=== PATIENT | female | born 1950 | race Caucasian/White ===

== ENCOUNTER 2019-04-28 05:47 | Inpatient (IN) ==
[2019-04-28] MEDS ORDERED: SOLU-MEDROL IV ONE (06:14)
[2019-04-28] MEDS ORDERED: BENTYL IM ONE (06:14)
--- NOTE | 2019-04-28 06:27 | PROVIDER DOCUMENTATION ---
HPI-Abdominal Pain/GI Problem - General Chief Complaint: Abdominal Pain Stated Complaint: "CHRON'S ISSUES" & GENERAL PAIN Time Seen by Provider: 04/28/19 05:54 Source: patient Allergies/Adverse Reactions: Patient Allergies Allergy/AdvReac Type Severity Reaction Status Date / Time abatacept [From Orencia] Allergy SWELLING Verified 04/28/19 06:43 infliximab [From Remicade] Allergy Unknown Verified 04/28/19 06:43 clindamycin AdvReac NAUSEA/VOMI Verified 04/28/19 06:43 TING duloxetine [From Cymbalta] AdvReac Unknown Verified 04/28/19 06:43 guaifenesin AdvReac RASH Verified 04/28/19 06:43 levofloxacin [From Levaquin] AdvReac Unknown Verified 04/28/19 06:43 meloxicam [From Mobic] AdvReac VOMITING Verified 04/28/19 06:43 nitrofurantoin AdvReac NAUSEA/VOMI Verified 04/28/19 06:43 TING temazepam AdvReac NAUSEA/VOMI Verified 04/28/19 06:43 TING tramadol AdvReac NAUSEA Verified 04/28/19 06:43 zaleplon AdvReac NAUSEA/VOMI Verified 04/28/19 06:43 TING Home Medications: Home Medication List Medication Instructions Recorded Confirmed Last Taken Type Amoxicillin/Potassium Clav 1 ea PO BID 04/28/19 04/28/19 1 Day Ago History [Amox-Clav 875-125 mg Tablet] ~04/27/19 Calcium Carbonate/Vit D3 [Caltrate 1 ea PO DAILY 04/28/19 04/28/19 Unknown History 600 + D] Gabapentin 100 mg PO DAILY 04/28/19 04/28/19 1 Day Ago History ~04/27/19 Lactobacillus Acidophilus 1 ea PO DAILY 04/28/19 04/28/19 Unknown History [Acidophilus] Losartan [Cozaar] 50 mg PO DAILY 04/28/19 04/28/19 1 Day Ago History ~04/27/19 Pantoprazole [Protonix] 40 mg PO DAILY 04/28/19 04/28/19 1 Day Ago History ~04/27/19 Prednisone 10 mg PO DAILY 04/28/19 04/28/19 1 Day Ago History ~04/27/19 Sulfasalazine [Azulfidine] 500 mg PO BID 04/28/19 04/28/19 Unknown History Vit C/E/Zn/Coppr/Lutein/Zeaxan 1 ea PO DAILY 04/28/19 04/28/19 Unknown History [Preservision Areds 2 Softgel] - History of Present Illness-ABD Nature of Presenting Problems: 68 y/o WF c/o abdo pain similar to her previous crohns flair ups shes that in the past. Pt States that she has had multiple episodes diarrhea and some SOB today as well. Abdominal Pain Onset Location: reports: generalized abdomen Pain Radiation: reports: no radiation Quality of Pain: reports: aching, cramping Severity in ED: reports: mild Onset/Duration: reports: 2 days ago Timing: reports: still present Activities at Onset: reports: light activity Exposure to sick contacts?: No Modifying Factors: improves with: defecating, palpation Associated Symptoms: reports: diarrhea Last BM: this morning Dark Stools Present?: reports: none noticed Rectal Bleeding: reports: none # of Diarrhea Episodes: 8 Rectal Pain: reports: none # of Vomiting Episodes: 0 Emesis Description: reports: none Bruising or Bleeding Gums?: No Similar Symptoms Previously?: Yes Recently seen or treated by another doctor?: No Review of Systems - Adult - REVIEW OF SYSTEMS - ADULT Constitutional: reports: no symptoms reported, see HPI Eyes: reports: no symptoms reported, see HPI Ears, Nose, Mouth & Throat: reports: no symptoms reported, see HPI Cardiovascular: reports: no symptoms reported, see HPI Respiratory: reports: no symptoms reported, see HPI Gastrointestinal: reports: see HPI, abdominal pain, diarrhea Genitourinary: reports: no symptoms reported, see HPI Musculoskeletal: reports: no symptoms reported, see HPI Integumentary: reports: no symptoms reported, see HPI Neurological: reports: no symptoms reported, see HPI Psychiatric: reports: no symptoms reported, see HPI Endocrine: reports: no symptoms reported, see HPI Hematologic/Lymphatic: reports: no symptoms reported, see HPI Allergic/Immunologic: reports: no symptoms reported, see HPI All Other Systems: Reviewed and Negative Past History - Adult - PAST MEDICAL HISTORY-ADULT Review of Records: reports: Nursing Assessment Review, Medications Reviewed, Social history reviewed & non-contributory. Physical Exam-General - PHYSICAL EXAM-ADULT Initial Vital Signs Reviewed: Yes - CONSTITUTIONAL General Appearance: appears well, alert, no apparent distress - EYES Eyes: PERRL/EOMI - HEAD, EARS, NOSE, MOUTH & THROAT HENMT: normocephalic/atraumatic, moist mucous membranes, normal ENT inspection - NECK Neck: non-tender, full range of motion, supple, normal inspection - RESPIRATORY Respiratory: chest non-tender, lungs clear, normal breath sounds, no pleuratic chest pain, no respiratory distress, no accessory muscle use - CARDIOVASCULAR Cardiovascular: normal peripheral pulses, regular rate, rhythm, no edema, no gallop, no JVD, no murmur - GASTROINTESTINAL (ABDOMEN) Abdominal Exam: normal bowel sounds, soft, no organomegaly, no pulsatile mass, tenderness (generalized) - LYMPHATIC Lymphatic: no adenopathy - MUSCULOSKELETAL Back Exam: normal inspection, no CVA tenderness, no vertebral tenderness Extremity: normal range of motion, non-tender, normal gait, normal inspection, no pedal edema, no calf tenderness, normal capillary refill - SKIN Integumentary: normal color, normal turgor - NEUROLOGIC Neurologic: insurance coder II-XII nml as tested, grossly normal, no motor/sensory deficits - PSYCHIATRIC Psych/Mental Status: normal mood/affect, normal thought content, normal thought process, oriented x 3 Progress - PLAN OF CARE/RESULTS Progress/Plan/Lab Results: Vital Signs - 8 hr 04/28/19 05:49 Temperature 98.5 F Pulse Rate 85 Respiratory Rate 18 Blood Pressure 140/73 O2 Sat by Pulse Oximetry 98 Orders Category Date Time Status CHEST-1 VIEW [RAD] Stat Exams 04/28/19 06:13 Ordered AMYLASE [CHEM] Stat Lab 04/28/19 05:55 Uncollected CBC WITH ELECTRONIC DIFF [HEME] Stat Lab 04/28/19 05:54 Uncollected COMPREHENSIVE METABOLIC PANEL [CHEM] Stat Lab 04/28/19 05:55 Uncollected LIPASE [CHEM] Stat Lab 04/28/19 05:55 Uncollected TROPONIN T Stat Lab 04/28/19 06:13 Uncollected URINALYSIS W/POSS RFLX CULT [URINALYSIS] Stat Lab 04/28/19 05:55 Uncollected Dicyclomine [Bentyl] Med 04/28/19 06:14 Once 10 mg IM NOW ONE Methylprednisolone Sod Succ [Solu-Medrol] Med 04/28/19 06:14 Once 125 mg IV NOW ONE EKG [EKG] Stat Ther 04/28/19 06:13 Ordered Result Diagrams: 04/28/19 06:15 04/28/19 06:15 - CONSULTS/PCP/HOSPITALIST Notification #1 *Consult/PCP/Hospitalist*: Dr March Time Discussed: 08:49 Consult Disposition: Admit (spoke with Regina, accepted patient for Dr March) - CHANGE OF SHIFT REPORT (ED Provider) 1 Report Given and Care Transferred to:: Dr Escobar Time of Transfer: 07:00 Items Pending: Labs, XRAY Results Departure - Departure Date of Disposition Decision: 04/28/19 Time of Disposition Decision: 08:57 DIAGNOSIS: Electrolyte abnormality, Dehydration Disposition: ADMITTED INPATIENT 09 Certified Medical Emergency: Emergent Condition: Good Referrals and Follow-Ups: None,PCP [Primary Care Provider] - - Critical Care Note This patient required my direct & personal management of CC.: No Attestation - Physician/ ANGUS Attestation Patient care was provided by Advanced Practice Provider:: No The physician spent face to face time with patient:: Yes Advanced Practice Provider documentation review:: Supervising physician onsite and consulted in the evaluation and care of this patient. The physician did have a face to face encounter with the patient.
[2019-04-28] MEDS ORDERED: NS 1,000 ML IV ONE ×2 (06:30→10:51)
--- NOTE | 2019-04-28 06:31 | Diag Imaging Result Doc PS360 ---
EXAM: CHEST-1 VIEW HISTORY: sob TECHNIQUE: Single view COMPARISON: 05/01/2017 FINDINGS: The lungs are well expanded. The heart is not enlarged. The vessels are not distended. There are no infiltrates. Likely pleural thickening in the right base. Old rib fractures. IMPRESSION: Stable chest Electronically signed by Evan Parry 04/28/2019 6:29 AM
[2019-04-28 07:10] LABS: BASO# 0.02 X1000 (0.0-0.2); BASO% 0.2 % (0.0-0.8); EOS# 0.12 X1000 (0.0-0.7); EOS% 0.9 % (0.0-10.0); HEMOGLOBIN 8.8 g/dL (12.0-16.0); LYMPH# 0.88 X1000 (1.2-3.4); LYMPH% 6.7 % (20.5-51.1); MCH 30.1 PG (27-31); MCHC 33.8 g/dL (33-37); MONO# 0.86 X1000 (0.11-0.59); MONO% 6.5 % (1.7-9.3); MPV 10.4 FL (7.4-10.4); NEUT# 11.26 X1000 (1.4-6.5); NEUT% 85.7 % (42.2-75.2); PLT 345 X1000 (130-400); RBC 2.92 XMIL (4.2-5.4); RDW 14.7 % (11.5-14.5); WBC 13.14 X1000 (4.8-10.8)
--- NOTE | 2019-04-28 07:17 | Diag Imaging Result Doc PS360 ---
EXAM: ABDOMEN FLAT/UPRIGHT HISTORY: abdo pain TECHNIQUE: Two views COMPARISON: 08/18/2010 FINDINGS: No free air beneath the diaphragm. There are surgical clips in the right lower quadrant. Nonspecific bowel gas pattern. No organomegaly. There are several left abdominal calcifications which may be renal stones. There are also pelvic phleboliths. IMPRESSION: Left abdominal calcifications which may represent lower pole renal stones. Electronically signed by Evan Parry 04/28/2019 7:14 AM
[2019-04-28 07:46] LABS: ALB/GLOB RATIO 1.5; ALBUMIN 3.5 g/dL (3.5-5.0); CREATININE 5.1 mg/dL (0.5-0.9); POTASSIUM 2.9 mmol/L (3.5-5.1); TOTAL BILIRUBIN 0.36 mg/dL (0.20-1.00); TOTAL PROTEIN 5.9 g/dL (6.3-8.3)
[2019-04-28 07:50] LABS: CALCIUM 5.8 mg/dL (8.8-10.2)
[2019-04-28] MEDS ORDERED: KLOR-CON PO ONE (07:59)
[2019-04-28] MEDS ORDERED: CALCIUM CHLORIDE 1 GM in NS 100 ML IV ONE (07:59)
[2019-04-28 08:47] LABS: URINE SOURCE CLEAN CATCH
[2019-04-28 08:54] LABS: BILIRUBIN URINE NEGATIVE (NEGATIVE); BLOOD URINE SMALL (NEGATIVE); COLOR YELLOW; GLUCOSE URINE NEGATIVE (NEGATIVE); KETONE URINE NEGATIVE (NEGATIVE); LEUKOCYTES URINE NEGATIVE (NEGATIVE); NITRITE URINE NEGATIVE (NEGATIVE); PH URINE 5.5; PROTEIN URINE 50 mg/dL (NEGATIVE); SP GRAVITY URINE 1.012; TURBIDITY URINE CLEAR (CLEAR); UROBILINOGEN URINE NORMAL (NORMAL)
[2019-04-28 09:02] LABS: UR EPITHELIAL CELLS <10 /HPF (<10); URINE BACTERIA NEGATIVE /HPF; URINE WBC <10 /HPF (<10)
[2019-04-28 09:09] LABS: URINE CASTS NONE SEEN; URINE CRYSTALS NONE SEEN; URINE SMALL ROUND CELLS NONE SEEN; URINE YEAST PRESENT
[2019-04-28] MEDS ORDERED: MAGNESIUM SULFATE 2 GM/S.W.I. 2 GM/50 ML IVPB IV ONE ×2 (10:14→10:15)
--- NOTE | 2019-04-28 10:20 | HISTORY AND PHYSICAL ---
HISTORY OF PRESENT ILLNESS: This is a 68-year-old, white female that was followed by Dr. Lopez but she is followed by Dr. Lee, her evp. She has had a long history of Crohn's disease and felt like her Crohn's has been acting up for a couple of months but it just seemed to get more intense. She has not been eating or drinking very well. Denies any blood in her stool. Denies any gross hematuria. She has hurt more in her joints, especially her hands and feet, but her knees in particular. Just feels like it is hurting in her bones and in her muscles. She presented to the emergency room. Her creatinine is elevated and some electrolyte abnormalities. PAST MEDICAL HISTORY: 1. Crohn's disease for at least 20 years. She has had several surgeries per Dr. Yang Delgado. Dr. Lee follows her for gastroenterology. 2. Rheumatoid arthritis. She has had all of her proximal interphalangeal joints replaced in both hands. 3. Hip replacement. 4. I think it was a right lobectomy. It was negative finding. She said that she had been exposed to mouse droppings, is what they told her, but it was not malignant. 5. She was treated for a toe ulcer. It sounds like she maybe has a hammertoe on her foot. 6. She said that she had kidney stones at one point that caused her to go on dialysis for a temporary time. SOCIAL HISTORY: Negative for alcohol or tobacco. She lives with one of her sons in [place]. No illicit drugs. FAMILY HISTORY: Father of massive myocardial infarction. Her mother and one of her mother's brothers had AML, Samira Gehrig's disease, and apparently they from that. ALLERGIES: Allergic to infliximab, clindamycin, duloxetine, guaifenesin, levofloxacin, meloxicam, nitrofurantoin, temazepam, abatacept, and apparently there is more. REVIEW OF SYSTEMS: She did not report any weight loss or gain. No fever or chills. HEENT: No change in visual or hearing acuity. Respiratory: No increased work of breathing or dyspnea. Cardiovascular: No chest pain or tachy palpitations. GI and : Mainly some low-grade nausea, a poor appetite, and frequent stools. Musculoskeletal/Neurologic: No focal changes. Endocrinologic/Hemologic: No significant history. PHYSICAL EXAMINATION: GENERAL: She is awake, alert, pleasant. Her two sons were at the bedside. VITAL SIGNS: Temperature 98.5 degrees, pulse 85, respirations 18, blood pressure 143/65. Height is 5 feet 3 inches. HEENT: Pupils are equal and round. LUNGS: Clear in all lung veloz. CARDIOVASCULAR EXAMINATION: Regular rhythm and rate without murmur or S3. ABDOMEN: Soft. SKIN: Warm and dry. No sign of rashes. No pedal edema. Oral and nasal mucosa without any rash. NECK: Supple. No cervical adenopathy. No sign of thyromegaly or thyroid nodules. LABORATORY DATA: White count 13,140, hematocrit is 26, hemoglobin 8.8, platelet count 345,000. Sodium 138, potassium 2.9, chloride 105, bicarb 7, creatinine 5.1, calcium was 5.8, with an albumin of 3.5. Urine unremarkable. Abdominal x-ray, left abdominal calcifications which may represent lower pole renal stones. Chest x-ray, stable chest. No sign of infiltrates. They did mention there is likely pleural thickening on the right base. There are old rib fractures. ASSESSMENT AND PLAN: 1. Acute kidney injury. Her creatinine was 5.1. Looking back at her creatinine, it was 1.0 in August of 2016. It was 2.2 in September of this year. I am hoping most of this is prerenal. She has not eating and drank much. We are going to give her some normal saline. I think I will run it at 85 mL an hour. She had an echocardiogram done in September of this year. She has normal left ventricular size and ejection fraction of 60% so actually, I think we will run it at 100 mL an hour normal saline. There was no significant valvular dysfunction that we saw from previous echocardiogram. 2. Potassium is low, supplement that. I think she can try and take that by mouth. We will give her 40 mEq of potassium by mouth daily. We will give potassium extended release. We need to follow her magnesium. We will check the magnesium. I think we need to check a phosphorus level. 3. Calcium is low. We will give her some calcium gluconate. We will give her 1 g intravenously today and we will recheck her calcium and phosphorus. We need to check her T4 and TSH. I notice her lipase was a little bit elevated but it does not appear to be consistent with pancreatitis. 4. Rheumatoid arthritis. She is having more joint pain at this time. She apparently was on amoxicillin for some reason recently and she does get calcium carbonate which is Caltrate 600 plus D 1 a day. She is on gabapentin 100 mg a day, acidophilus 1 tablet a day, Cozaar 50 mg a day, Protonix 40 mg a day, prednisone 10 mg a day, Azulfidine 500 mg by mouth twice a day, vitamin C/E/zinc/copper - she gets 1 tablet a day. cc: Patrick Gastelum MD
[2019-04-28] MEDS ORDERED: NS 1,000 ML IV SCH (10:51)
[2019-04-28] MEDS ORDERED: ZOFRAN IV PRN (10:51)
[2019-04-28] MEDS: MAGNESIUM SULFATE 2 GM/S.W.I. 2 GM/50 ML IVPB IV ONE ×2 (12:02→13:29)
--- NOTE | 2019-04-28 12:12 | Diag Imaging Result Doc PS360 ---
EXAM: US RENAL 2 (RETROPER) COMPLETE HISTORY: ARF TECHNIQUE: Renal ultrasound COMPARISON: 11/13/2018 FINDINGS: The right kidney measures 10.3 x 5.5 x 5.8 cm. The left kidney measures 10.8 x 5.4 x 5.3 cm. Normal cortical thickness to each kidney. However, there is increased renal echogenicity to both kidneys. There is an 8 mm nonobstructing left lower pole renal stone. There is also a 2.7 cm renal cyst. There are several smaller right renal cysts. No hydronephrosis. IMPRESSION: Increased renal echogenicity which can be seen with medical renal disease. There is also nonobstructing left renal stone. Electronically signed by Evan Parry 04/28/2019 12:09 PM
[2019-04-28 13:01] LABS: HEMATOCRIT 28.1 % (37.0-47.0); HEMOGLOBIN 9.4 g/dL (12.0-16.0)
[2019-04-28 14:27] LABS: POTASSIUM 3.4 mmol/L (3.5-5.1)
--- NOTE | 2019-04-28 14:42 | GASTROENTEROLOGY CONSULTATION ---
DATE: 04/28/2019 REASON FOR CONSULT: Crohn's exacerbation. HISTORY OF PRESENT ILLNESS: Ms. Jean is a 68-year-old female with a history of Crohn's disease, rheumatoid arthritis, osteoarthritis, hypertension, who came to the hospital today with complaints of nausea, diarrhea, which she described as liquid in consistency, but she has denied any blood in her stools. Complained of abdominal pain. Denied any fever or chills, but feels weak. The patient mentioned losing 15 pounds in 1 month. The patient has severe osteoarthritis and arthritis in her hand. 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 ALLERGIES: The patient is allergic to infliximab, clindamycin, duloxetine, guaianesin, levofloxacin, meloxicam, nitrofurantoin, temazepam, tramadol and zaleplon. SOCIAL HISTORY: The patient is a , has 2 sons. Denies any alcohol, tobacco, or illicit drug use. HOME MEDICATIONS: Multivitamin, Neurontin, amoxicillin/potassium, calcium carbonate, acidophilus, cozar, prednisone and Azulfidine. FAMILY HISTORY: Her dad had a heart attack. Her mom had Samira Gehrig's syndrome. Brother had stomach cancer, and sister had breast cancer. PAST SURGICAL HISTORY: Small intestine surgery, colostomy and reverse colostomy, right hip replacement, lung surgery, and tongue surgery. REVIEW OF SYSTEMS: As per HPI. Otherwise, 12-point review of systems is negative. PHYSICAL EXAMINATION: Vital Signs: Temperature 98.2 degrees, pulse 101, respirations 18, blood pressure 159/85, oxygen saturation 99% on room air. The patient's weight is 100 pounds. BMI is 17.7 kg/m2 General: She is alert, oriented x3, and in no acute distress. HEENT: Pale conjunctivae. No icterus. PERRL. Neck: Supple. Lungs: Clear to auscultation in the anterior veloz. Cardiovascular: The patient is tachycardic. Abdomen: Soft, nontender, nondistended. Active bowel sounds heard in all 4 quadrants. Extremities: No clubbing, no cyanosis, no edema. Pedal pulses 2+ present bilaterally. Neurologic: She is alert, oriented x3. Nonfocal. Cranial nerves II through XII are grossly intact. IMAGING AND LABORATORY DATA: WBCs are 13.14, RBCs 2.92, hemoglobin is 9.4, hematocrit is 28.1, platelet count is 345,000. Sodium 138, potassium 2.9, chloride 109, carbon dioxide 7, anion gap 26, BUN 60, creatinine 5.1, glucose 83, calcium 5.8. Total bilirubin 0.36, AST 21, ALT is 12, alkaline phosphatase 151, albumin is 3.5. Amylase 137, lipase 127. Urinalysis showed protein of 50, small amount of blood. Her DI reflex antibodies were negative. Her ANCA panel for vasculitis was negative. Complement C3 was normal. Complement C4 was normal. Her ESR was 75 and CRP was 201.27 Abdominal ultrasound showed increased renal echogenicity, which can be seen with medical renal disease. There is also nonobstructive left renal stone. Abdomen x-ray showed left abdomen calcifications, which may represent lower pole renal stones. Chest x-ray showed stable chest. IMPRESSION AND PLAN: Crohn's disease Diarrhea Anemia Abdominal pain Nausea and vomiting Rheumatoid arthritis Osteoarthritis Anemia Kidney stones PLAN: Ms. Jean is a 68-year-old female with a history of Crohn's disease. GI is consulted for a Crohn's exacerbation. Will check stool studies, labs and CT enterography to evaluate it further. She is on antiemetics, Zofran for nausea and vomiting. She is on lactated Ringer's 100 mL per hour. The patient is also receiving sodium bicarbonate 650 mg p.o. She is on Azulfidine 500 mg BID, Folic acid 1mg QD for her Crohn's, with prednisone 10 mg daily, and she is receiving GI prophylaxis with Protonix 40 mg p.o. daily and Carafate 600 mg. Patient's CRP and ESR is elevated. Patient does need and EGD and colonoscopy, we will have to talk to the patient and if she is ok we will schedule one. We will continue to monitor the patient, and follow the plan of care per PCP. This plan was discussed with Dr. Reeder. Thank you for your consult. Please call us for any further questions or concerns. Dictated by BLANCA Mclean for Malcolm Reeder MD cc: Malcolm Reeder MD I have seen and examined the patient myself and I agree with the above plan of care. Discussed the above with the patient and all questions were answered. Please call us with any further questions or concerns. MARLENE
[2019-04-28 14:48] LABS: CALCIUM 6.9 mg/dL (8.8-10.2); MAGNESIUM 1.2 mg/dL (1.5-2.7); PHOSPHORUS 7.3 mg/dL (2.7-4.5)
[2019-04-28] MEDS: LR 1,000 ML IV SCH ×2 (15:35→22:58)
[2019-04-28] MEDS: SODIUM BICARBONATE PO SCH ×2 (16:30→22:58)
--- NOTE | 2019-04-28 16:34 | PROVIDER PROGRESS NOTE ---
Progress Note Chief complaint: My Crohns is flared up. HPI: Ms. Jean is a 68-year-old white female with a past medical history of Crohns disease and a kidney stone requiring dialysis temporarily in 2010. Her Crohns disease has been flaring up over the last couple of months and is being followed by Dr. Lee. She presented to the ED with severe abdominal and joint pain. She has a 3 day history of not been eating or drinking well due to her abdominal pain and nausea. She has had multiple loose stools, which she says is normal for her. She denies any change in flow, color, or frequency in her urine. She denies hematuria. Last week she had a cough, congestion, and increased muscle aches that she went to the doctor and was given amoxicillin /clavulanate. It should be noted that her son who she loves with tested positive for the flu last week and she was never tested. Her creatinine on presentation is 5.1. It was noted that she was in the 2s earlier this year. Her potassium, calcium, and magnesium levels are low. She has been admitted to the medical floor for pain management, electrolyte abnormalities, and an acute kidney injury. Past medical history: Crohns disease for over 20 years, Dr. Lee following, rheumatoid arthritis, kidney stones requiring temporary dialysis in 2010. Past surgical history: proximal interphalangeal joints replaced in bilateral hands, right hip replacement, right lobectomy, Dr. Delgado Social history: she lives at home with her son. She denies any tobacco, alcohol, or illicit drug use. Family history: father positive for coronary artery disease. He of a massive myocardial infarction. Her mother and her uncle are both positive for AML and Samira Gehrig's disease. Allergies: abatacept, infliximab, duloxetine, levofloxacin, meloxicam, nitrofurantoin, temazepam, tramadol, zaleplon Home medications: calcium/vitamin D, amoxicillin/clavulanate, gabapentin, acidophilus, Coozar, protonix, prednisone, sulfasalazine, PreserVision areds. Review of systems: neurological: denies altered mental status, confusion, or dizziness. Eyes: denies blurriness, dryness, or change in visual acuity. ENT: denies tinnitus or change in hearing. Integumentary: denies any erythema, rash, or itching. Respiratory: Denies any shortness of breath, orthopnea, or cough. Cardiovascular: denies palpitations or chest pain. G.I.: Admits to nause, no vomiting, admits to severe abdominal pain. : denies change in flow, color, or amount, odor. Endocrine: Denies excessive thirst and hunger. Musculoskeletal: Admits to increased weakness,extremity pain, and joint pain. Labs: WBC 13.14, hemoglobin 8.8, hematocrit 26.0, platelet count 345, sodium 138, potassium 2.9, chloride 105, carbon dioxide seven, anion gap 26, BUN 60, creatinine 5.1, calcium 5.8, magnesium 0.6, phosphorus 8. Urinalysis:protein 50, small blood, 10 to 20 RBC, yeast-like cells present. Imaging: Renal ultrasound impression: increased renal echogenicity. 8 mm nonobstructing left lower pole renal stone and a 2.7 cm renal cyst. No hydronephrosis. Abdominal x-ray impression left abdominal calcifications. Chest x-ray impression pleural thickening in the right base. Old rib fractures. Physical exam: temperature 98.2, pulse 101, respirations 18, blood pressure 159/85, O2 sat 100% on room air. General: elderly white female lying in bed in no acute distress. HEENT: normocephalic, a traumatic, pupils equal and reactive, mucous membranes dry. Trachea midline. Skin: pale, warm and dry. Neck: supple, JVD appreciated. Cardiovascular: S1, S2, tachycardic, no murmur noted. Rate dependent gallop. Respiratory: clear bilaterally with equal air excursion Abdomen: soft, mildly tender, nondistended. Bowel sounds active. : non inspected Extremities: no clubbing, cyanosis, or Edema. Neurologic: alert and oriented to person, place, and time. Assessment and plan: Acute kidney injury. Likely prerenal from dehydration. Possible ischemic tubular necrosis from nephrotoxic antibiotic. We will order urine studies with strict I/Os. Renal imaging complete. She is receiving IVF now. Hypokalemia. She has potassium IV ordered. Hypocalcemia. She has calcium IV ordered. Hypomagnesium. She has magnesium IV ordered. Metabolic acidosis. Should we switch NS to LR? Or watch to improve with fluids? Anemia. Low, but stable. She does not make transfusion criteria. Blood pressure. Slightly above target. We will monitor for now. Fluid volume. Euvolemic on exam. Nutrition. Encourage diet when able to tolerate. Ambulation. Up with assist. Medication review. Was on amoxicillin/clavulanate 850-125. She has low dose gabapentin. Seen by Viky Harrington but not by Ryne. Discussed by phone with Eyal Kaur.
--- NOTE | 2019-04-28 16:57 | NEPHROLOGY CONSULTATION ---
DATE: 04/28/2019 REASON FOR ADMISSION: Abdominal pain and joint pain for 3 days. States that she has not been eating or drinking well. HPI: Ms Jean is a 68-year-old white female who is known to our outpatient services for chronic kidney disease stage 3B. Her baseline creatinine in January 2019 has been 1.6 to 1.9 with a history of 2.2 in September of this year. She has no followup appointment after cancelling and stating that she will plan for followup at a later date. Unfortunately the patient has a history of Crohn disease with chronic kidney disease temporarily on dialysis in 2010. Her Crohn disease has had a flare up in the last couple months followed by Dr. Lee. She presented to [facility] Emergency Department with severe abdominal and joint pain for 3 days, not eating or drinking well due to her abdominal discomfort and nausea. She states that she has not had any emesis. She has had multiple stools which is not unusual for her. She denies any change in color or flow or frequency of these stools versus her urine output. She denies any hematuria. She does have a cough with congestion reported last week with some muscle aches. She states she went to her primary care physician at which time she was given Augmentin. She lives with her son and states that her son tested positive for the flu last week. She states she was never tested. Her creatinine on presentation in the emergency room was 5.1, again 1.9 to 2.2 in the year 2018. Her potassium is low at 2.9. She has currently received potassium and magnesium bolus. She is receiving an IV fluid of normal saline bolus. She is now sitting up on the side of the bed. She is eating her lunch. Denies any discomfort at this time. PAST MEDICAL HISTORY: Crohn disease for at least [address] Lee, she has had previous abdominal surgery per Dr. Yang Delgado, patient has a history of rheumatoid arthritis in both hands, she has had nephrolithiasis requiring temporary dialysis in 2010 with obstruction. PAST SURGICAL HISTORY: Proximal interphalangeal joint replaced in bilateral hands, right hip replacement, right lobectomy per Dr. Delgado, patient has been treated for toe ulcers and hammertoe on her right foot. FAMILY HISTORY: Father positive for coronary artery disease, of massive myocardial infarction. Mother and uncle both positive for acute MIs, AML and Samira Gehrig disease, both are . ALLERGIES: Listed is abatacept, infliximab, duloxetine, levofloxacin, meloxicam, nitrofurantoin, temazepam, tramadol and zaleplon. HOME MEDICATIONS: Calcium with vitamin D, she has been on Augmentin, gabapentin, acidophilus, Cozaar, Protonix, prednisone, sulfasalazine and PreserVision Areds. SOCIAL HISTORY: She lives with her son in [place]. She denies tobacco, alcohol or illicit drug use. REVIEW OF SYSTEMS: Times 10 with pertinent positives listed above in the HPI. LABS: WBC 13.14, hemoglobin 8.8, hematocrit 26, platelet count 345,000. Sodium 138, potassium 2.9, chloride 105, carbon dioxide of 7.0, anion gap 26, BUN 60, creatinine 5.1, calcium 5.8, magnesium 0.6, phosphorus 8. Urinalysis is 50 proteinuria, small blood, 10 to 20 RBCs, yeast like cells present, negative urine eosinophils. IMAGING: Renal ultrasound has an impression of increased renal echogenicity, 8 mm nonobstructing left lower pole renal stone, a 2.7 cm renal cyst, no hydronephrosis. Abdominal x-ray impression is a left abdominal calcifications. Chest x-ray impression pleural thickening in the right base, old rib fractures. The patient's physical exam her vital signs temperature 98.2 degrees, blood pressure 159/85, heart rate 101, respirations are 18, she is on room air 100% saturation O2. PHYSICAL EXAM: This is a 68-year-old white female resting quietly on the side of the bed. She appears in no acute distress.Skin: Warm and dry. HEENT: Normocephalic, atraumatic. Conjunctiva is pale. She has MENDOZA. Mucous membranes are dry. Neck: Supple, trachea midline. She has no appreciable JVD in the upright position though the patient is thin and has rope-like neck veins. Cardiovascular: Regular rate and rhythm. S1, S2 noted. She does have dependent gallop more likely secondary to her cardiac rate. Respiratory: Lungs are clear to auscultation bilaterally. Equal excursion on room air. Abdomen: Soft, nontender, positive bowel sounds. Genitourinary: Not inspected. Patient is on strict I's and O's. Extremities: Have no edema, no clubbing or cyanosis. Neurological: She is alert and oriented x3. ASSESSMENT AND PLAN: 1. Acute kidney injury overlying chronic kidney disease stage 3B. Baseline creatinine 1.7 to 2.2 in the year 2019. More than likely this is prerenal secondary to volume depletion. Could also be possible ischemic tubular necrosis with nephrotoxic antibiotics. These have currently been stopped. Urine studies have been ordered. She is on strict inputs, outputs. Renal imaging is essentially negative. She continues to receive intravenous fluid bolus. 2. Electrolytes, patient is hypokalemic and hypocalcemic. She has received supplementation ordered IV with magnesium. 3. Metabolic acidosis. We will change her IV fluids of normal saline to LR. We will add sodium bicarbonate 650 mg p.o. b.i.d. starting 1st dose as soon as possible. 4. Fluid volume depletion. The patient does appear euvolemic on exam though her BUN and creatinine are slightly elevated. She continues to receive 1 L fluid bolus, remains on continuous lactated Ringer's at 100 mL an hour, after this is finished we will reevaluate labs in the a.m. 5. Medication review. Patient has had her Augmentin and her Cozaar stopped. No indications for further intervention, we will continue to monitor and evaluate. Like to thank you for allowing us to follow with this patient. Dictated by BLANCA Aviles for Pablo Kaur MD cc: BLANCA Aviles MD
[2019-04-28] MEDS: AZULFIDINE PO SCH (22:58)
[2019-04-29 06:49] LABS: UR PROT RANDOM 47.4 mg/dL
[2019-04-29 08:12] LABS: EOS# 0.01 X1000 (0.0-0.7); EOS% 0.1 % (0.0-10.0); HEMATOCRIT 23.7 % (37.0-47.0); HEMOGLOBIN 7.9 g/dL (12.0-16.0); IMM GRAN# 0.05 X1000 (0.0-0.04); IMM GRAN% 0.5 % (0.0-0.5); LYMPH% 4.2 % (20.5-51.1); MCHC 33.3 g/dL (33-37); MCV 87.1 FL (81-99); MONO# 0.74 X1000 (0.11-0.59); MONO% 7.7 % (1.7-9.3); NEUT# 8.35 X1000 (1.4-6.5); NEUT% 87.5 % (42.2-75.2); PLT 232 X1000 (130-400); RBC 2.72 XMIL (4.2-5.4); RDW 14.4 % (11.5-14.5); WBC 9.55 X1000 (4.8-10.8)
[2019-04-29 08:20] LABS: TSH 0.96 uIUmL (0.27-4.20)
[2019-04-29 08:26] LABS: FREE T4 0.64 ng/dL (0.93-1.70)
[2019-04-29 08:27] LABS: ALBUMIN 2.8 g/dL (3.5-5.0); CREATININE 4.2 mg/dL (0.5-0.9); MAGNESIUM 1.9 mg/dL (1.5-2.7); PHOSPHORUS 6.9 mg/dL (2.7-4.5); POTASSIUM 2.9 mmol/L (3.5-5.1)
[2019-04-29 08:31] LABS: CALCIUM 6.9 mg/dL (8.8-10.2)
[2019-04-29 08:40] LABS: BANDS 6 % (0-1); HYPOCHROM 1+; LYMPHS 8 % (21-51); MONO 4 % (1-9); SEGS 82 % (42-75)
[2019-04-29] MEDS: SODIUM BICARBONATE PO SCH (09:13)
[2019-04-29] MEDS: PREDNISONE PO SCH (09:14)
[2019-04-29] MEDS: PROTONIX PO SCH (09:14)
[2019-04-29] MEDS: CALTRATE 600 + D PO SCH (09:14)
[2019-04-29] MEDS: AZULFIDINE PO SCH ×2 (09:15→22:44)
[2019-04-29] MEDS: FOLIC ACID PO SCH (09:18)
[2019-04-29] MEDS: LR 1,000 ML IV SCH (09:18)
[2019-04-29] MEDS ORDERED: CALCIUM GLUCONATE 4.65 MEQ in NS 50 ML IV ONE (11:00)
[2019-04-29] MEDS ORDERED: POTASSIUM CHLORIDE 40 MEQ/SWI 40 MEQ/100 ML IVPB IV ONE (11:00)
[2019-04-29] MEDS ORDERED: NON-FORMULARY MED PO ONE (11:00)
--- NOTE | 2019-04-29 12:12 | GASTROENTEROLOGY PROGRESS NOTE ---
DATE: 04/29/2019 SUBJECTIVE: Ms. Jean is a 68-year-old female, resting in bed. Family at the bedside. The patient has denied any nausea, vomiting, or abdominal pain. She mentioned having 1 bowel movement today. OBJECTIVE: Vital Signs: Temperature 97.6 degrees, pulse is 65, respirations 18, blood pressure 154/59, oxygen saturation 99% on room air. The patient's weight is 100 pounds. BMI is 17.7 kg/m2. General: She is alert, oriented x3, and in no acute distress. HEENT: Pale conjunctivae. No icterus. PERRL. Neck: Supple. Lungs: Clear to auscultation in the anterior veloz. Cardiovascular: Regular rate and rhythm. Abdomen: Soft, nontender, nondistended. Active bowel sounds heard in all 4 quadrants. Extremities: No clubbing, no cyanosis, no edema. Pedal pulses 2+ present bilaterally. Neurologic: She is alert and oriented x3. LABORATORY DATA: WBCs are 9.55, RBC 2.72, hemoglobin 7.9, hematocrit 27.3, platelet count is 232,000. Sodium 139, potassium 2.9, chloride 110, carbon dioxide 7, anion gap 22, BUN 65, creatinine 4.2, glucose 88, calcium 6.9. Phosphorus 6.9, magnesium 1.9. Albumin 2.8. Vitamin B12 is 1333, folate 26.6, TSH 0.96, free T4 is 0.64. IMPRESSION AND PLAN: 1. Crohn's disease. 2. Diarrhea. 3. Anemia. 5. Nausea and vomiting. 6. Rheumatoid arthritis. PLAN: Ms. Jean is a 68-year-old female with a history of Crohn's disease. GI is following her for her Crohn's exacerbation. The patient's stool studies have been pending. 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 The patient is currently receiving antiemetic, Zofran, for nausea and vomiting which is under control. She is on GI prophylaxis, Protonix 40 mg daily. The patient's potassium today was 2.9. She is receiving potassium chloride IV, her bicarb and calcium was also low and she is receiving sodium bicarbonate and calcium gluconate IV per PCP. For her Crohn's, she is on Azulfidine 500 mg twice a day, and receiving folic acid and prednisone. 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 She does not want to do any procedures for now. We will continue to monitor the patient, and follow the plan of care per PCP. Her hemoglobin is 7.9 and hematocrit is 23.7. We will monitor her H & H and if it drops below 7, we will transfuse PRBC's per protocol. This plan was discussed with Dr. Florse. Please call us for any further questions or concerns. Dictated by BLANCA Mclean for Royer Flores MD Physician Attestation I have seen and examined the patient. I have discussed and reviewed the note by Jolene RIOS and agree with findings and plan as documented. MTDMariely
--- NOTE | 2019-04-29 13:04 | PROVIDER PROGRESS NOTE ---
Progress Note Subjective: Pt voices feeling better, denies any nausea, vomiting, joint pain, or stomach aches. Says she has mild shortness of breath with exertion when up walking. Objective: temperature 97.9, pulse 88, respirations 18, blood pressure 143/62, 02 sat 98% on room air. General: elderly white female lying in bed in no acute distress. HEENT: normocephalic, a traumatic, pupils equal and reactive, mucous membranes dry. Trachea midline. Skin: warm and dry. Neck: supple, JVD appreciated. Cardiovascular: S1, S2, S4 tachycardic, no murmur noted. Respiratory: clear bilaterally with equal air excursion Abdomen: soft, mildly tender, nondistended. Bowel sounds active. : non inspected Extremities: no clubbing, cyanosis, or Edema. Neurologic: alert and oriented to person, place, and time. Labs: urine osmolality 235, urine random sodium 43. Intake 1440. Output 60. 2 unmeasured voids Impression: Acute kidney injury overLying chronic. Likely prerenal from dehydration. Creatinine improving with fluids. Hypokalemia. She has potassium IV ordered. Hypocalcemia. Metabolic acidosis. We will place her on bicarbonate drip. Anemia. Low, but stable. She does not make transfusion criteria. Blood pressure. In target. Fluid volume. Euvolemic on exam. Nutrition. Encourage diet when able to tolerate. Ambulation. Up with assist. Medication review
[2019-04-29] MEDS: SODIUM BICARBONATE 8.4% 150 MEQ in D5W 1,000 ML IV SCH ×2 (14:53→18:31)
[2019-04-29] MEDS: POTASSIUM CHLORIDE 20 MEQ/SWI 20 MEQ/100 ML IVPB IV SCH ×2 (14:54→17:30)
[2019-04-29] MEDS ORDERED: KLOR-CON PO ONE (18:36)
--- NOTE | 2019-04-29 21:30 | PROGRESS NOTE ---
DATE: 04/29/2019 SUBJECTIVE: The patient has no major complaints. Her diarrhea has improved but she is still having significant diarrhea. OBJECTIVE: Blood pressure is 148/57, heart rate of 69, respiratory rate 18, temperature 98.2 degrees.Cardiovascular: Regular rate and rhythm. Pulmonary: Bilateral breath sounds, diminished at the bases. GI: Soft, nontender, nondistended. Bowel sounds are positive. LABORATORY DATA: We have ordered a C. difficile but we still have not gotten it back. She said she gave them a stool sample. ASSESSMENT AND PLAN: 1. Acute kidney injury. We will continue hydration. Her creatinine is slowly improving. 2. Hypokalemia. We will supplement and follow. 3. Hypocalcemia. We will also supplement and follow. 4. Crohn disease exacerbation. We will continue to monitor closely. 5. She also has a very profound metabolic acidosis. Her bicarbonate is 7. Her free T4 is low, too. Her albumin is low. C-reactive protein is low. In any case, she is on a bicarbonate drip, which will likely contribute to her hypokalemia. Appreciate custom decorating consultant's help. We will still continue to follow. We are going to start high-dose steroids once we get the Clostridium difficile testing back, and will start her on Solu-Medrol 60 intravenous q.8. cc: Javan Hodge MD
[2019-04-29] MEDS: NEURONTIN PO SCH (22:44)
[2019-04-30] MEDS: SODIUM BICARBONATE 8.4% 150 MEQ in D5W 1,000 ML IV SCH ×3 (05:38→20:50)
[2019-04-30 07:47] LABS: EOS# 0.07 X1000 (0.0-0.7); EOS% 1.2 % (0.0-10.0); HEMATOCRIT 22.2 % (37.0-47.0); HEMOGLOBIN 7.5 g/dL (12.0-16.0); IMM GRAN# 0.02 X1000 (0.0-0.04); IMM GRAN% 0.4 % (0.0-0.5); LYMPH# 0.42 X1000 (1.2-3.4); LYMPH% 7.4 % (20.5-51.1); MCH 29.4 PG (27-31); MCHC 33.8 g/dL (33-37); MCV 87.1 FL (81-99); MONO# 0.52 X1000 (0.11-0.59); MONO% 9.2 % (1.7-9.3); MPV 9.8 FL (7.4-10.4); NEUT# 4.65 X1000 (1.4-6.5); NEUT% 81.8 % (42.2-75.2); PLT 208 X1000 (130-400); RBC 2.55 XMIL (4.2-5.4); RDW 14.3 % (11.5-14.5); WBC 5.68 X1000 (4.8-10.8)
[2019-04-30 07:59] LABS: ALBUMIN 2.9 g/dL (3.5-5.0); CALCIUM 7.8 mg/dL (8.8-10.2); CREATININE 3.4 mg/dL (0.5-0.9); PHOSPHORUS 5.4 mg/dL (2.7-4.5)
[2019-04-30] MEDS ORDERED: NEURONTIN PO SCH (09:00)
[2019-04-30] MEDS: FOLIC ACID PO SCH (09:32)
[2019-04-30] MEDS: PROTONIX PO SCH (09:32)
[2019-04-30] MEDS: PREDNISONE PO SCH (09:32)
[2019-04-30] MEDS: CALTRATE 600 + D PO SCH (09:32)
[2019-04-30] MEDS: AZULFIDINE PO SCH ×3 (09:33→20:50)
--- NOTE | 2019-04-30 12:08 | GASTROENTEROLOGY PROGRESS NOTE ---
DATE: 04/30/2019 SUBJECTIVE: Ms. Jean is a 68-year-old female. She was resting in bed. The patient has denied any complaints of nausea, vomiting, or abdominal pain. The patient did have a bowel movement today and it was liquid in consistency. OBJECTIVE: Vital Signs: Temperature is 98.1 degrees, pulse 86, respirations 17, blood pressure 159/60, oxygen saturation 100% on room air. Her weight is 100 pounds, BMI is 17.7 kg/m2. General: She is alert and oriented x3, in no acute distress. HEENT: [place] conjunctivae. No icterus. Neck: Supple. Lungs: Clear to auscultation in the anterior veloz. Cardiovascular: Regular rate and rhythm. Abdomen: Soft, nontender, nondistended. Active bowel sounds heard in all 4 quadrants. Extremities: No clubbing, no cyanosis, no edema. Pedal pulses 2+ bilaterally. Neurologic: She is alert and oriented x3. LABORATORY DATA: WBC is 5.68, RBCs 2.5, hemoglobin 7.5, hematocrit 22.2, platelet count is 208,000. Sodium 143, potassium 3.0, chloride 112, carbon dioxide 12, anion gap 19, BUN 64, creatinine is 3.4, glucose 88, calcium 7.8, phosphorus 5.4. Abdomen and pelvis CT showed mild thickening in the distal small bowel, cholelithiasis, nephrolithiasis, varices in the left upper abdomen, hysterectomy, left inguinal hernia and trace fluid in the liver. Her C-diff toxin and antigen are negative. IMPRESSION AND PLAN: 1. Crohn's disease. 2. Diarrhea. 3. Anemia. 5. Nausea and vomiting. 6. Rheumatoid arthritis. PLAN: Ms. Jean is a 68-year-old female with a history of Crohn's disease. GI is following her for her Crohn's exacerbation. The patient's c-diff antigen and toxins are negative.The patient's nausea, vomiting and diarrhea is also under control. Her H & H today was 7.5 and 22.2. We will monitor her H &H and if the hemoglobin drops below 7 we will transfuse PRBC's per protocol. The patient is refusing to do any procedures because she is worried about her fistula getting ruptured. Based on the results of the CT scan, we will try and talk to the patient on getting the EGD and Colonoscopy done. This plan has been discussed with Dr. Flores. Please call us for any further questions or concerns. Dictated by BLANCA Mclean for Royer Flores MD Physician Attestation I have seen and examined the patient. I have discussed and reviewed the note by Jolene RIOS and agree with findings and plan as documented. [facility]
--- NOTE | 2019-04-30 13:24 | NEPHROLOGY PROGRESS NOTE ---
DATE: 04/30/2019 SUBJECTIVE: She states he has good urine output. Ongoing diarrhea. He states urine is clear yellow. No other new complaints. OBJECTIVE: Vital Signs: Blood pressure 159/69, heart rate 95, afebrile. Intake and output are incomplete. 1.8 L of intake and 1200 mL of output in urine but stool is not measured. HEENT: Conjunctivae are pink. Pupils are equal. Neck: Neck veins are distended. Trachea is midline. Heart: Regular. No gallops or murmurs. Lungs: Equal. No crackles or wheezes. Abdomen: Soft, nontender. Bowel sounds present. Extremities: No edema, clubbing or cyanosis. IMPRESSION: Acute kidney injury secondary to intravascular volume depletion and from diarrhea, complicated by a metabolic acidosis secondary to gastrointestinal bicarbonate loss. The last creatinine we have in the computer is 2.2 from back in September so we are not certain that she has normal baseline. Creatinine is improving, so we will continue IV fluids. An observation. Data are pending. cc: Pablo Kaur MD MTDD
[2019-04-30] MEDS ORDERED: TYLENOL PO PRN (15:09)
[2019-04-30] MEDS ORDERED: PHENERGAN IV ONE (16:13)
[2019-04-30] MEDS ORDERED: SODIUM CHLORIDE 0.9% INJ ONE (16:13)
--- NOTE | 2019-04-30 18:12 | PROGRESS NOTE ---
DATE: 04/30/2019 SUBJECTIVE: She feels a little bit better. Is still having frequent bowel movements. She got nauseous. She refused to take any more contrast for CT scan yesterday. She refused her prep for her colonoscopy. I do not know if that was today or yesterday or a combination therein, so no imaging and no endoscopy has been completed at this point. She said she was too nauseous to tolerate the contrast, although the mannitol medication that was there previously looked like it was missing about 800 to 900 mL. I do not know if that was actually taken in or thrown up. PROBLEM LIST: 1. Acute kidney injury. That is steadily improving. Her creatinine is continuing to come down, 3.4. She had been on a bicarbonate drip and her gap acidosis is improving somewhat, probably a combination of sugars, azotemia. 2. Anemia, symptomatic. I think she probably will need another transfusion. We are going to continue to see how she does. She is right at the cusp at 7 and 22. 3. Hypokalemia. We will continue to supplement. She is on a bicarbonate drip, so this is going to just be a continuous riddle I think until she is off the drip. 4. Hypocalcemia, which is still in issue. Continue treatment there. 5. Crohn's exacerbation. We will attempt to try to repeat CT after giving her some antiemetics, but I anticipate she may need blood tomorrow. DISPOSITION: Pending her clinical status. cc: Javan Hodge MD
--- NOTE | 2019-04-30 18:32 | Diag Imaging Result Doc PS360 ---
EXAM: CT ABD/PELVIS W/ORAL CONT ONLY HISTORY: crohns exacerbation TECHNIQUE: CT abdomen and pelvis without contrast COMPARISON: 08/16/2010 FINDINGS: There are stones within a distended gallbladder. No focal hepatic normality identified on this noncontrasted exam. There is a tiny amount of fluid about the liver. No splenomegaly. There are multiple varices in the left upper quadrant. No inflammation about the pancreas. Normal adrenal glands. There are several left renal stones. No hydronephrosis. Mild atherosclerosis. No aortic aneurysm. There is oral contrast in the distal small bowel and colon. Mild thickening to the distal small bowel. No abscess. The urinary bladder is moderately distended. The uterus has been removed. No pelvic mass. There is a fat filled left inguinal hernia. There are surgical clips in the right lower quadrant. IMPRESSION: 1.Mild thickening to the wall of the distal small bowel which may be related to the patient's Crohn's 2.Cholelithiasis 3.Nephrolithiasis 4.Prominent varices in the left upper abdomen 5.Hysterectomy 6.Left inguinal hernia 7.Trace fluid about the liver This exam was performed using automated exposure control, adjustment of mA or kV according to patient size, and/or use of iterative reconstruction technique. Electronically signed by Evan Parry 04/30/2019 6:30 PM
[2019-04-30] MEDS: SOLU-MEDROL IV SCH (19:04)
[2019-04-30] MEDS: NEURONTIN PO SCH (20:50)
[2019-05-01] MEDS: SOLU-MEDROL IV SCH ×2 (01:22→06:00)
[2019-05-01 08:05] LABS: HEMATOCRIT 23.5 % (37.0-47.0); HEMOGLOBIN 7.9 g/dL (12.0-16.0); LYMPH# 0.17 X1000 (1.2-3.4); LYMPH% 6.8 % (20.5-51.1); MCH 29.2 PG (27-31); MCHC 33.6 g/dL (33-37); MCV 86.7 FL (81-99); MONO# 0.03 X1000 (0.11-0.59); MONO% 1.2 % (1.7-9.3); MPV 9.1 FL (7.4-10.4); NEUT# 2.31 X1000 (1.4-6.5); PLT 197 X1000 (130-400); RBC 2.71 XMIL (4.2-5.4); RDW 14.4 % (11.5-14.5); WBC 2.51 X1000 (4.8-10.8)
[2019-05-01 08:22] LABS: ALBUMIN 2.8 g/dL (3.5-5.0); CALCIUM 7.9 mg/dL (8.8-10.2); CREATININE 3.1 mg/dL (0.5-0.9); PHOSPHORUS 5.7 mg/dL (2.7-4.5); POTASSIUM 2.9 mmol/L (3.5-5.1)
[2019-05-01] MEDS: FOLIC ACID PO SCH (08:49)
[2019-05-01] MEDS: PROTONIX PO SCH (08:49)
[2019-05-01] MEDS: CALTRATE 600 + D PO SCH (08:49)
[2019-05-01] MEDS: AZULFIDINE PO SCH ×2 (08:50→20:45)
[2019-05-01] MEDS: SODIUM BICARBONATE 8.4% 150 MEQ in D5W 1,000 ML IV SCH ×3 (08:50→18:45)
[2019-05-01 09:29] LABS: LYMPHS 4 % (21-51); SEGS 96 % (42-75)
[2019-05-01 09:31] LABS: HYPOCHROM 1+
--- NOTE | 2019-05-01 10:42 | GASTROENTEROLOGY PROGRESS NOTE ---
DATE: 05/01/2019 SUBJECTIVE: Ms. Jean is a 68-year-old female. She was resting in bed, and family was at the bedside. The patient has denied any complaints of nausea, vomiting, or abdominal pain. She did have 2 bowel movements this morning. OBJECTIVE: Vital Signs: Temperature 98.6 degrees, pulse 87, respirations 17, blood pressure 159/74, oxygen saturation 98% on room air. Her weight is 100 pounds. BMI is 17.7 kg/m2. General: She is alert and oriented x3, and in no acute distress. HEENT: Pale conjunctivae. No icterus. PERRL. Neck: Supple. Lungs: Clear to auscultation in the anterior veloz. Cardiovascular: Regular rate and rhythm. Abdomen: Soft, nontender, nondistended. Active bowel sounds heard in all 4 quadrants. Extremities: No clubbing, no cyanosis, no edema. Pedal pulses 2+ present bilaterally. Neurologic: She is alert and oriented x3. IMAGING AND LABORATORY DATA: WBC is 2.51, RBC is 2.71, hemoglobin is 7.9, hematocrit is 23.5, platelet count is 197,000. Sodium 145, potassium 2.9, chloride 109, carbon dioxide 18, anion gap 18, BUN 55, creatinine 3.1, calcium 7.9, magnesium 5.7, glucose 135, albumin 2.8. The patient's Clostridium difficile toxin and antigens are negative. Stool for WBCs was negative. The patient's abdomen and pelvis CT has shown that she has some mild thickening in the distal small bowel related to her Crohn's, cholelithiasis, nephrolithiasis, prominent varices in the left upper abdomen, hysterectomy, left inguinal hernia, and trace fluid in the liver. IMPRESSION AND PLAN: 1. Crohn's disease. 2. Diarrhea. 3. Anemia. 4. Hypokalemia 5. Nausea and vomiting. 6. Protein calorie malnutrition 7. Abdominal varices PLAN: Ms. Jean is a 68-year-old female with a history of Crohn's disease. She has been followed by GI for her Crohn's exacerbation. The patient's diarrhea is getting a little better. Her Clostridium difficile antigen and toxins were negative, and her WBCs for the stools were also negative. The patient's nausea and vomiting is under control. Her abdominal pain is under control. The patient's hemoglobin today are 7.9 and 23.5. They are slightly trending up. Explained to the patient, the CT scan results. The patient still is hesitant about getting any procedures done. She said she would think about it and let us know. This plan was discussed with Dr. Flores. Please call us for any further questions or concerns. Dictated by BLANCA Mclean for Royer Flores MD Physician Attestation I have seen and examined the patient. I have discussed and reviewed the note by Jolene RIOS and agree with findings and plan as documented. MARLENE
[2019-05-01] MEDS ORDERED: POTASSIUM CHLORIDE 60 MEQ in NS 500 ML IV ONE (12:27)
--- NOTE | 2019-05-01 13:56 | PROVIDER PROGRESS NOTE ---
Progress Note Subjective: patient voices no uremic complaint. She is still currently having multiple loose stools. Objective: temperature 97.7, pulse 80, blood pressure 154/71, respirations 18, 02 sat 97% on room air. General: elderly white female lying in bed in no acute distress. HEENT: normocephalic, a traumatic, pupils equal and reactive, mucous membranes moist. Trachea midline. Skin: warm and dry. Neck: supple, JVD appreciated. Cardiovascular: S1, S2, tachycardic, no murmur noted. Respiratory: scattered inspiratory wheezing posterior bilateral Abdomen: soft, mildly tender, nondistended. Bowel sounds active. : non inspected Extremities: no clubbing, cyanosis, or Edema. Neurologic: alert and oriented to person, place, and time. Labs: intake 360, output 1200. WBC 2.51, hemoglobin 7.9, hematocrit 23.5, platelet count 197, sodium 145, potassium 2.9, chloride 109, carbon dioxide 18, BUN 55, creatinine 3.1, calcium 7.9 Imaging: abdominal CT of the abdomen and pelvis shows mild thickening in the distal small bowel related to her Crohns disease. Prominent varices in the left upper abdomen. Trace fluid in the liver. Impression: Acute kidney injury overLying chronic. Likely prerenal from dehydration. Creatinine continues to improve with fluids. No changes. Metabolic acidosis. Remains on bicarbonate drip. Anion gap closing. Anemia. Low 7.9, but stable. She does not meet transfusion criteria. Blood pressure. In target. Fluid volume. Euvolemic on exam. Nutrition. Tolerating food. Ambulation. Up with assist. Medication review. No changes.
--- NOTE | 2019-05-01 17:34 | PROGRESS NOTE ---
DATE: 05/01/2019 SUBJECTIVE: Patient reports feeling fine. Denies any fever or chills. Continues to have bowel movements. Reports no more episodes of nausea. OBJECTIVE: Vital Signs: Temperature 98.6 degrees, heart rate 87, respiratory rate 17, blood pressure 159/74. O2 saturation 98% on room air. General: This is a chronically ill-appearing, 68-year-old female lying in bed, in no acute distress. Cardiovascular: S1 and S2 heard. No murmurs, gallops, or rubs. Regular rate and rhythm. Respiratory: Clear bilaterally to auscultation. No work of breathing or using accessory muscles. Abdomen: Soft, nontender to palpation. Bowel sounds present. No organomegaly. Extremities: No clubbing, cyanosis, or edema. Peripheral pulses present in both legs. Neurological: The patient is alert, oriented x3. Moves 4 extremities. LABORATORY DATA: White cell count 2.51, hemoglobin 7.9, hematocrit 23.5 with platelets 197,000. BMP remarkable for creatinine 3.1, potassium 2.9. Phosphorus 5.7. ASSESSMENT AND PLAN: 1. Acute kidney injury. Patient continues to be on bicarbonate drip. Nephrology is following this patient. Creatinine continues to improve. We will continue with the same management. Bicarbonate is 18 today. We will continue to monitor. 2. Anemia of chronic disease. The hemoglobin is 7.9 today, a little bit better in comparing with yesterday. We will continue to monitor this patient closely. 3. Hypokalemia. We will provide 60 mEq of IV potassium. 4. Hypocalcemia. We will continue to replenish that. 5. Crohn exacerbation. We decided to repeat the CT of the abdomen which basically showed mild thickening of the wall of the distal small bowel which may be related to patient's Crohn's with cholelithiasis and nephrolithiasis. At this point, we will continue with the same management. 6. Disposition: I think if her labs and electrolytes are okay tomorrow, we can let her go. cc: Alonzo Vallejo MD
[2019-05-01] MEDS: NEURONTIN PO SCH (20:47)
[2019-05-01] MEDS ORDERED: KLOR-CON PO ONE (22:22)
[2019-05-01] MEDS ORDERED: CALCIUM GLUCONATE 2 GM in NS 100 ML IV ONE (22:23)
[2019-05-02] MEDS: SOLU-MEDROL IV SCH (06:08)
[2019-05-02 08:12] LABS: EOS# 0.08 X1000 (0.0-0.7); EOS% 1.8 % (0.0-10.0); HEMATOCRIT 23.2 % (37.0-47.0); HEMOGLOBIN 7.7 g/dL (12.0-16.0); IMM GRAN# 0.03 X1000 (0.0-0.04); IMM GRAN% 0.7 % (0.0-0.5); LYMPH# 0.41 X1000 (1.2-3.4); LYMPH% 9.4 % (20.5-51.1); MCH 29.6 PG (27-31); MCHC 33.2 g/dL (33-37); MCV 89.2 FL (81-99); MONO# 0.26 X1000 (0.11-0.59); MPV 9.1 FL (7.4-10.4); NEUT# 3.56 X1000 (1.4-6.5); NEUT% 82.1 % (42.2-75.2); PLT 213 X1000 (130-400); RDW 14.5 % (11.5-14.5); WBC 4.34 X1000 (4.8-10.8)
[2019-05-02] MEDS: FOLIC ACID PO SCH (08:36)
[2019-05-02] MEDS: PROTONIX PO SCH (08:36)
[2019-05-02] MEDS: CALTRATE 600 + D PO SCH (08:36)
[2019-05-02] MEDS: AZULFIDINE PO SCH ×2 (08:36→21:27)
[2019-05-02] MEDS: SODIUM BICARBONATE 8.4% 150 MEQ in D5W 1,000 ML IV SCH (08:37)
[2019-05-02 08:39] LABS: ALBUMIN 2.9 g/dL (3.5-5.0); CALCIUM 8.5 mg/dL (8.8-10.2); CREATININE 2.4 mg/dL (0.5-0.9); PHOSPHORUS 3.5 mg/dL (2.7-4.5); POTASSIUM 3.5 mmol/L (3.5-5.1)
--- NOTE | 2019-05-02 10:49 | GASTROENTEROLOGY PROGRESS NOTE ---
DATE: 05/02/2019 PATIENT PROFILE: A 68-year-old female. SUBJECTIVE: Ms. Jean is a 68-year-old female, sitting in bed and family at the bedside. The patient has denied any complaints of nausea, vomiting, abdominal pain, but she did mention that she had a few bowel movements which were liquid in consistency. OBJECTIVE: Vital Signs: Temperature 97.0 degrees, pulse 94, respirations 17, blood pressure 163/73, oxygen saturation 96%. She is on room air. The patient's weight is 100 pounds. BMI is 17.7 kg/m2. General: She is alert, oriented x3, in no acute distress. HEENT: Pale conjunctivae, no icterus. PERRL. Neck: Supple. Lungs: Clear to auscultation in the anterior veloz. Cardiovascular: Patient is tachycardic. Abdomen: Soft, nontender, nondistended. Active bowel sounds heard in all 4 quadrants. Extremities: No clubbing, no cyanosis, no edema. Pedal pulses 2+ present bilaterally. Neurologic: She is alert, oriented x3, in no acute distress. LABORATORY DATA: WBCs of 4.34, RBC 2.60, hemoglobin 7.2, hematocrit 23.2, platelet count 213. Sodium 146, potassium 3.5, chloride 110, carbon dioxide 20, anion gap 16. BUN 48, creatinine 2.4, glucose 99, calcium 8.5, phosphorus 3.5, albumin is 2.9. IMPRESSION: 1. Crohn's disease. 2. Diarrhea. 3. Anemia. LAURA Protein calorie malnutrition PLAN: Ms. Jean is a 68-year-old female with a history of Crohn's disease. GI is following her for Crohn's exacerbation. The patient is still having diarrhea. Her C-diff antigen, toxins and WBCs are negative. Her nausea, vomiting and abdominal pain is under control. Her hemoglobin and hematocrit is 7.7 and 23.2. The patient had a CT scan done and it showed that she had some mild thickening in the distal small bowel due to her Crohn's, cholelithiasis, nephrolithiasis, and prominent varices in the left upper abdomen. The patient still refuses to do any procedures. We will continue to monitor the patient and follow the plan of care per PCP. This plan was discussed with Dr. Flores. Please call us for any further questions or concerns. Dictated by BLANCA Mclean for Royer Flores MD [facility]
[2019-05-02] MEDS: SODIUM BICARBONATE PO SCH ×2 (15:11→21:25)
--- NOTE | 2019-05-02 20:34 | NEPHROLOGY PROGRESS NOTE ---
DATE: 05/02/2019 SUBJECTIVE: She states she is feeling well. Eating. Still having diarrhea. No nausea or vomiting. OBJECTIVE: Vital Signs: Blood pressure 163/73, heart rate 94, respirations 17, afebrile. Intake 1.5 L, but output is not recorded. General: No acute distress. Skin: Warm and dry. Neck: Neck veins are distended. Trachea is midline. Heart: Regular. No gallops. Lungs: Equal. No crackles. Abdomen: Soft, nontender. Bowel sounds are present. Extremities: Have 1 to 2+ edema. No clubbing or cyanosis. IMPRESSION: 1. Acute kidney injury. Intravascular volume depletion plus/minus ischemic acute tubular necrosis. Creatinine 2.4 today. Progressive improvement. 2. Hypovolemia. Resolved. I will stop her intravenous fluids. 3. Acidosis. Bicarbonate 20 today. Since I am stopping her intravenous bicarbonate, I will begin oral bicarbonate therapy. cc: Pablo Kaur MD
[2019-05-02] MEDS: NEURONTIN PO SCH (21:25)
[2019-05-03] MEDS: SOLU-MEDROL IV SCH (06:52)
[2019-05-03 08:29] LABS: EOS# 0.17 X1000 (0.0-0.7); EOS% 3.8 % (0.0-10.0); HEMATOCRIT 23.7 % (37.0-47.0); HEMOGLOBIN 7.5 g/dL (12.0-16.0); IMM GRAN# 0.03 X1000 (0.0-0.04); IMM GRAN% 0.7 % (0.0-0.5); LYMPH# 0.43 X1000 (1.2-3.4); LYMPH% 9.5 % (20.5-51.1); MCH 28.8 PG (27-31); MCHC 31.6 g/dL (33-37); MCV 91.2 FL (81-99); MONO# 0.33 X1000 (0.11-0.59); MONO% 7.3 % (1.7-9.3); NEUT# 3.55 X1000 (1.4-6.5); NEUT% 78.7 % (42.2-75.2); PLT 210 X1000 (130-400); RDW 14.9 % (11.5-14.5); WBC 4.51 X1000 (4.8-10.8)
[2019-05-03] MEDS: PROTONIX PO SCH (09:04)
[2019-05-03] MEDS: CALTRATE 600 + D PO SCH (09:04)
[2019-05-03] MEDS: SODIUM BICARBONATE PO SCH ×2 (09:04→20:51)
[2019-05-03] MEDS: AZULFIDINE PO SCH ×2 (09:04→20:51)
[2019-05-03] MEDS: FOLIC ACID PO SCH (09:04)
[2019-05-03 09:05] LABS: ALBUMIN 2.9 g/dL (3.5-5.0); CALCIUM 7.7 mg/dL (8.8-10.2); CREATININE 2.1 mg/dL (0.5-0.9); PHOSPHORUS 2.9 mg/dL (2.7-4.5); POTASSIUM 2.9 mmol/L (3.5-5.1)
[2019-05-03] MEDS ORDERED: NS 500 ML IV ONE (11:46)
--- NOTE | 2019-05-03 15:23 | DISCHARGE SUMMARY ---
ADMISSION DATE: 04/28/2019 DISCHARGE DATE: 05/02/2019 CONSULTATIONS: 1. Dr. Kaur with Nephrology. 2. Dr. Reeder, Gastroenterology. PERTINENT PROCEDURES: Renal ultrasound increased renal echogenicity which can be seen with medical renal disease also a nonobstructing left renal stone. Abdominal x-ray left abdominal calcifications. Abdomen and pelvis CT mild thickening to the wall of the distal small bowel which may be related to the patient's Crohn's, nephrolithiasis, prominent varices of left upper abdomen, hysterectomy, left inguinal hernia trace fluid about the liver. DISCHARGE DIAGNOSES: 1. Acute kidney injury on chronic kidney disease stage 3B likely prerenal from dehydration improved. Patient is close to her historical baseline which is 1.7 to 2.2 currently at 2.4. 2. Metabolic acidosis with a high anion gap metabolic acidosis, anion gap is closed. Metabolic acidosis improved with bicarb drip. She has been transitioned to p.o. bicarb. 3. Anemia chronic disease, hemoglobin and hematocrit stable. Patient is hemodynamically stable. She has not required any transfusions. 4. Hypokalemia, hypocalcemia, hypo magnesium. All electrolytes have been replenished. 5. Crohn exacerbation. Patient has been followed by gastroenterology, all stool studies have been negative. Her nausea and vomiting are under control as well as her abdominal pain. The patient has refused any gastrointestinal procedures. HOSPITAL COURSE: Briefly Ms. Jean is a 68-year-old female with past medical history of Crohn disease followed by Dr. Lee, previous abdominal surgeries by Dr. Delgado, primary history of rheumatoid arthritis, nephrolithiasis requiring temporary dialysis in 2010. She does have chronic kidney disease stage 3B with a baseline creatinine I believe of 1.7 to 2.2. She came to the ED complaining of abdominal and joint pain that was ongoing for 3 days. She has not been able to eat or drink well. Her creatinine was found to be 5.1, her potassium was low at 2.9, calcium was 6.9 and magnesium was 0.6. All electrolytes were replenished in the ED. She was initiated on IV fluids consulted Dr. Kaur who placed her on LR for her metabolic acidosis added her on p.o. bicarbonate. All nephrotoxic medications were held. GI also asked to evaluate however patient refused any GI procedures. All her stool cultures were negative. It took several days for her anion gap as well as metabolic acidosis to resolve, her anemia remained low but stable. She did not require any blood transfusions, her acute kidney injury slowly resolved as well as her abdominal pain and nausea. She will be discharged back home today with home health. VITAL SIGNS: Temperature is 97 degrees, heart rate 94, respiratory 17, blood pressure 163/73, O2 is 96% on room air. DISCHARGE DIET: Renal . DISCHARGE MEDICATIONS: 1. Lactobacillus 1 each p.o. daily. 2. Augmentin 1 each p.o. b.i.d. for 10 days this medication was initially started on 04/23. 3. Azulfidine 500 mg p.o. b.i.d. 4. Calcium carbonate vitamin D3 1 each p.o. daily. 5. Cozaar 50 mg p.o. daily . 6. Gabapentin 100 mg p.o. daily. 7. Prednisone 10 mg p.o. daily. 8. PreserVision 1 each p.o. daily. 9. Protonix 40 mg p.o. daily. 10. Folic acid 1 mg p.o. daily. 11. Sodium bicarbonate 1300 mg p.o. b.i.d. FOLLOWUP: Ms. Jean is being discharged back home with home health. She is to follow up with Dr. Kaur in 1 to 2 weeks, Dr. Royer Flores in 2 weeks as well as her primary care physician. She is take all medications as prescribed. She can return to the ED or call 911 for any worsening of symptoms. Dictated by BLANCA Mayers for Alonzo Vallejo MD Addendum: I talked with GI about this patient. During all her whole hospitalization she was refusing to have any procedure done. Considering she continues to have diarrhea will keep her over the weekend and will try to do EGD/colonoscopy next sunday or sunday. cc: [facility]onzo Vallejo MD [facility]
[2019-05-03] MEDS ORDERED: NS 250 ML ONE (16:35)
[2019-05-03] MEDS: NEURONTIN PO SCH (20:51)
[2019-05-03] MEDS: POTASSIUM CHLORIDE 60 MEQ in NS 500 ML IV SCH (20:52)
--- NOTE | 2019-05-03 22:07 | PROGRESS NOTE ---
DATE: 05/03/2019 SUBJECTIVE: The patient continues to have diarrhea, in this case 5 bowel movements only today, though it was probably 10 yesterday. OBJECTIVE: Vital Signs: Temperature 98.1, heart rate 94, respiratory rate 17, blood pressure 156/80, O2 saturation 96% on room air. General: This is a [id number] 68-year-old female lying in bed in no acute distress. Cardiovascular: S1, S2 heard. No murmurs, gallops, or rubs. Regular rate and rhythm. Respiratory: Clear bilaterally to auscultation. No work of breathing or using accessory muscles. Abdomen: Soft. Nontender to palpation. Bowel sounds present, hyperactive. No organomegaly noted. Neurological: Patient alert oriented x3. Moves 4 extremities. LABORATORY DATA: Hemoglobin is 7.5 with white cell count 4.51. Potassium 2.9, creatinine 2.1. ASSESSMENT AND PLAN: 1. Chronic constipation. The last CT scan of the abdomen that we had ordered here showed thickening of the wall of the distal small bowel which definitely relates. The patient continues to be on IV steroids. 2. Because of diarrhea, the patient developed hypokalemia. We will continue to replete and will continue to monitor this patient closely. 3. Acute kidney injury. The patient continues to improve. The patient is on bicarbonate tablets as per Nephrology. We will continue to monitor. 4. Anemia of chronic disease. Hemoglobin has dropped to 7.5 today. I am going to provide 1 unit of blood to her. 5. Hypocalcemia. Will continue to replenish calcium. 6. Hypophosphatemia. We will replenish. 7. Disposition: I think we will keep this patient over the weekend. It is very important to remark that the patient agreed to do any procedure that needs to be done, so will inform Dr. Reeder and see what will be his decision for this patient. cc: Alonzo Vallejo MD
[2019-05-04] MEDS: SOLU-MEDROL IV SCH (06:45)
[2019-05-04] MEDS ORDERED: KLOR-CON PO ONE (07:59)
[2019-05-04] MEDS: POTASSIUM CHLORIDE 60 MEQ in NS 500 ML IV SCH (07:59)
[2019-05-04] MEDS: AZULFIDINE PO SCH (08:48)
[2019-05-04] MEDS: PROTONIX PO SCH (08:48)
[2019-05-04] MEDS: FOLIC ACID PO SCH (08:48)
[2019-05-04] MEDS: SODIUM BICARBONATE PO SCH ×2 (08:48→20:40)
[2019-05-04] MEDS: CALTRATE 600 + D PO SCH (08:48)
[2019-05-04 12:10] LABS: EOS# 0.09 X1000 (0.0-0.7); EOS% 1.5 % (0.0-10.0); HEMATOCRIT 31.2 % (37.0-47.0); HEMOGLOBIN 9.9 g/dL (12.0-16.0); IMM GRAN# 0.04 X1000 (0.0-0.04); IMM GRAN% 0.7 % (0.0-0.5); LYMPH# 0.41 X1000 (1.2-3.4); MCH 29.6 PG (27-31); MCHC 31.7 g/dL (33-37); MCV 93.4 FL (81-99); MONO% 3.4 % (1.7-9.3); MPV 9.3 FL (7.4-10.4); NEUT# 5.11 X1000 (1.4-6.5); NEUT% 87.4 % (42.2-75.2); PLT 172 X1000 (130-400); RBC 3.34 XMIL (4.2-5.4); WBC 5.85 X1000 (4.8-10.8)
[2019-05-04 12:31] LABS: ALBUMIN 3.3 g/dL (3.5-5.0); CALCIUM 8.4 mg/dL (8.8-10.2); CREATININE 1.9 mg/dL (0.5-0.9); MAGNESIUM 1.2 mg/dL (1.5-2.7); PHOSPHORUS 2.2 mg/dL (2.7-4.5); POTASSIUM 4.3 mmol/L (3.5-5.1)
[2019-05-04 12:51] LABS: ANISOCYTOSIS 1+; EOS 5 % (1-10); HYPOCHROM 1+; LYMPHS 7 % (21-51); MONO 3 % (1-9); SEGS 85 % (42-75)
[2019-05-04] MEDS ORDERED: MAGNESIUM SULFATE 4 GM/S.W.I. 4 GM/100 ML IVPB IV ONE (13:35)
[2019-05-04] MEDS ORDERED: NS IV ONE (14:30)
[2019-05-04] MEDS ORDERED: POTASSIUM PHOSPHATE IV ONE (14:30)
--- NOTE | 2019-05-04 20:19 | PROGRESS NOTE ---
DATE: 05/04/2019 INTERVAL HISTORY: The patient still with diarrhea after eating anything. Now, the patient is now amenable to endoscopy. No new complaints. No acute events overnight. REVIEW OF SYSTEMS: Twelve point review of systems negative as per interval history. LABS: WBC 5.8, hemoglobin 9.9, hematocrit 31.2, platelets 172,000. Sodium 151, potassium 4.3, bicarb 20, BUN 30, creatinine 1.9, magnesium 1.2, phosphorus 2.2, calcium 8.4. VITALS: T-max 98.5 degrees, pulse 71, respirations 16, blood pressure 160/69, O2 saturation 98% on room air. PHYSICAL EXAMINATION: General: No acute distress. Vitals: As above. HEENT: Normocephalic, atraumatic. Moist mucous membranes. No cervical adenopathy. Cardiovascular: Regular rate and rhythm. No murmurs noted. Pulmonary: Clear to auscultation bilaterally. No wheezing, rales, or rhonchi. Abdomen: Soft, nontender. Bowel sounds still little hyperactive. Nondistended. Extremities: Peripheral pulses intact. No clubbing or cyanosis. Neurologic: Cranial nerves grossly intact. No focal deficits identified. Psychiatric: Normal mood and affect. Awake, alert, oriented x3. Skin: No new appearing rashes or lesions identified. ASSESSMENT AND PLAN: 1. Crohn's disease with possible flare. The patient has had diarrhea and associated electrolyte abnormalities. No hematochezia, but may have some aspect of Crohn's flare. Gastroenterology following and consider possible endoscopy. Patient was initially resistant but is now on board, although she would prefer Dr. Flores to perform this if at all possible. We will await further Gastroenterology recommendations. 2. Acute kidney injury essentially baseline at this point. Continue bicarb tablets for associated renal tubular acidosis. 3. Likely anemia of chronic disease. Transfused 1 unit yesterday with appropriate increase. No signs or symptoms of active bleeding. 4. Hypophosphatemia. Still low. Will further replete. 5. Hypomagnesemia. Still pretty significant. We will give her 4 g and monitor. 6. Hypokalemia. Finally improved with repletion. Monitor and further replete as needed. 7. Hypocalcemia. Corrects to normal for her albumin at this point. Continue to monitor. 8. Hyponatremia. Creeping up a little bit over the last 2 to 3 days. Taking good p.o. fluids, so we will hold off on intervening for today, but if it worsens again tomorrow, we will likely have to start some half-normal saline. DISPOSITION: Pending further recommendations by Gastroenterology regarding endoscopy.
[2019-05-04] MEDS: PATIENT'S OWN MED PO SCH (20:40)
[2019-05-04] MEDS: NEURONTIN PO SCH (20:40)
[2019-05-05] MEDS: SOLU-MEDROL IV SCH ×2 (05:17→06:11)
[2019-05-05 07:42] LABS: ALBUMIN 3.2 g/dL (3.5-5.0); CALCIUM 7.9 mg/dL (8.8-10.2); CREATININE 1.6 mg/dL (0.5-0.9); PHOSPHORUS 3.7 mg/dL (2.7-4.5); POTASSIUM 3.9 mmol/L (3.5-5.1)
[2019-05-05 07:43] LABS: BASO# 0.01 X1000 (0.0-0.2); BASO% 0.2 % (0.0-0.8); EOS# 0.21 X1000 (0.0-0.7); EOS% 3.3 % (0.0-10.0); HEMOGLOBIN 9.3 g/dL (12.0-16.0); IMM GRAN# 0.04 X1000 (0.0-0.04); IMM GRAN% 0.6 % (0.0-0.5); LYMPH# 0.41 X1000 (1.2-3.4); LYMPH% 6.5 % (20.5-51.1); MCH 29.2 PG (27-31); MONO# 0.22 X1000 (0.11-0.59); MONO% 3.5 % (1.7-9.3); MPV 9.2 FL (7.4-10.4); NEUT# 5.38 X1000 (1.4-6.5); NEUT% 85.9 % (42.2-75.2); PLT 166 X1000 (130-400); RBC 3.19 XMIL (4.2-5.4); WBC 6.27 X1000 (4.8-10.8)
[2019-05-05] MEDS: FOLIC ACID PO SCH (08:47)
[2019-05-05] MEDS: PATIENT'S OWN MED PO SCH ×2 (08:47→22:03)
[2019-05-05] MEDS: PROTONIX PO SCH (08:47)
[2019-05-05] MEDS: CALTRATE 600 + D PO SCH (08:47)
[2019-05-05] MEDS: SODIUM BICARBONATE PO SCH ×2 (08:47→22:01)
--- NOTE | 2019-05-05 11:16 | GASTROENTEROLOGY PROGRESS NOTE ---
DATE: 05/05/2019 SUBJECTIVE: Ms. Jean is a 68-year-old, female. She was resting in bed. Family at the bedside. The patient has denied any nausea, vomiting, or abdominal pain but she did mention that she has been having diarrhea. Yesterday she had 5 bowel movement and today she had 4. OBJECTIVE: Vital Signs: Temperature 97.6 degrees, pulse 91, respirations 16, blood pressure 170/79, oxygen saturation 97% on room air. The patient's weight is 186 pounds. BMI is 32.0 kg/m2. General: She is alert, oriented x3, and in no acute distress. HEENT: Pale conjunctivae. No icterus. PERRL. Neck: Supple. Lungs: Clear to auscultation in the anterior veloz. Cardiovascular: Regular rate and rhythm. Abdomen: Soft, nontender, nondistended. Active bowel sounds heard in all 4 quadrants. Extremities: No clubbing, no cyanosis. Pitting edema 2+ present bilaterally. Neurologic: She is alert, oriented x3. Laboratory Data: WBCs 6.27, RBCs 3.19, hemoglobin 9.3, hematocrit 30.0, platelet count is 166,000. Sodium 149, potassium 3.9, chloride 114, carbon dioxide 21, anion gap 14, BUN 23, creatinine 1.6, glucose 95, calcium 7.9, phosphorus 3.7, albumin is 3.2. IMPRESSION: 1. Crohn's disease. 2. Diarrhea. 3. Anemia. 4. Abdominal pain. 5. Nausea and vomiting. 6. Rheumatoid arthritis. 7. Osteoarthritis. 8. Kidney stones. PLAN: Ms. Jean is a 68-year-old, female with a history of Crohn's disease. GI is following her for her Crohn's exacerbation. The patient has denied any nausea, vomiting, or abdominal pain but she is still having diarrhea. Her Clostridium difficile antigen, toxins, and WBCs were negative. Her hemoglobin today is 9.3 and hematocrit is 30.0. The patient is currently receiving GI prophylaxis, p.o. Protonix daily. She takes sulfasalazine for her Crohn's disease. She will continue on Solumedrol for now. The patient has finally agreed to do the procedure, we will be doing an EGD and a colonoscopy tomorrow. Further plan of care will be based on the EGD and colonoscopy findings. Discussed the risks, benefits, and alternatives of the procedure to the patient and family. The patient and family acknowledged understanding of the plan of care. This plan was discussed with Dr. Reeder. Please call us for any further questions or concerns. Dictated by BLANCA Mclean for Malcolm Reeder MD cc: Malcolm Reeder MD I have seen and examined the patient myself and I agree with the above plan of care. I have discussed the above with the patient and all questions were answered. Please call us with any further questions. MARLENE
--- NOTE | 2019-05-05 12:51 | NEPHROLOGY PROGRESS NOTE ---
DATE: 05/05/2019 SUBJECTIVE: Patient is resting in bed. She has had no complaints other than swelling to her feet. OBJECTIVE: Vital Signs: Temperature 98.4 degrees, pulse 81, respiratory rate 12, blood pressure 157/64. Intake 250 mL. Output not measured. She is voiding. General: This is a chronically ill-appearing, elderly female, resting in bed. She is awake and alert. She is in no acute distress. HEENT: Normocephalic, atraumatic. MENDOZA. Neck: Supple. There is no JVD. Cardiovascular: Regular rate and rhythm. No murmur. Pulmonary: She is clear bilaterally. Abdomen: Soft, with positive bowel sounds. : Voiding. Extremities: She has 1 to 2+ pedal edema and trace pretibial edema. Integumentary: Skin is warm and dry. Neurologic: Grossly nonfocal. Musculoskeletal: She is ambulatory to the restroom without difficulty. Lab Data: WBC of 6.2, hemoglobin 9.3. Sodium 149, potassium 3.9, CO2 of 21, BUN 23, creatinine 1.6. ASSESSMENT AND PLAN: 1. Acute overlying chronic kidney disease. Her baseline creatinine appears around 1.7. She is at 1.6 today. Unclear about urine output. The patient states that she is making "a lot of urine". We will request intakes and outputs. 2. Electrolytes, acid-base balance, anemia. These are stable. 3. Metabolic acidosis. She has had some bicarbonate started. 4. Edema. The patient is noted on gabapentin as well as the bicarbonate. It is unclear about her intakes and outputs, if she is retaining fluid or if this is more medication and/or vascular causation. Patient states that at home, she is on a "water pill". She is unable to tell me the name of the medication and when I check her medication reconciliation, there is no diuretic listed. Patient is having no issue with respiratory status today. I will hold off adding any diuretic today until we can determine if she is on a home medication as such. If edema worsens, would consider stopping her bicarbonate. Dictated by BLANCA Ricardo for Pablo Kaur MD Face to face encounter, data reviewed, discussed with Mehdi Morse on 05/05/19. I agree with the above assessment and plan of care. cc: Pablo Kaur MD [facility]WORK[facility]ariely
--- NOTE | 2019-05-05 13:28 | PROGRESS NOTE ---
DATE: 05/05/2019 SUBJECTIVE: The patient continues to have diarrhea today, 4 times so far. No bloody diarrhea though. Denies any abdominal cramping, fever, chills. OBJECTIVE: Vital Signs: Temperature 98.0 degrees, heart rate 86, respiratory rate 16, blood pressure 153/72, O2 saturation 99% on room air. General: This is a 68-year-old female, lying in bed in no acute distress. Cardiovascular: S1, S2 heard. No murmurs, gallops, or rubs. Regular rate and rhythm. Respiratory: Clear bilaterally to auscultation. No work of breathing or using accessory muscles. Abdomen: Soft. Bowel sounds present and hyperactive. No signs of peritoneal irritation. Extremities: No clubbing, cyanosis, or edema. Peripheral pulses present in both legs. Neurological: The patient is alert and oriented x3. Moves all 4 extremities. LABORATORY DATA: White cell count 6.97, hemoglobin 9.3, hematocrit 30.0, platelets 166,000. BMP reveals sodium 149, with potassium 3.9, and creatinine 1.6. ASSESSMENT AND PLAN: 1. Crohn's disease exacerbation. The patient continues to have diarrhea, so Gastroenterology has evaluated this patient and decided to do endoscopy and colonoscopy. Will see what it shows. The last CT scan of the abdomen showed thickening of the wall of the distal small bowel. Will continue to monitor this patient closely. Will continue with intravenous steroids. 2. Hypokalemia. That condition is resolved. Will continue to monitor BMP daily. 3. Acute kidney injury. Creatinine continues to improve. The patient is receiving bicarbonate tablets. Nephrology is following this patient. 4. Anemia of chronic disease. After transfusion of 1 unit of blood, hemoglobin continues to be stable. 5. Hypocalcemia. Will continue repletion of calcium. 6. Disposition. On this patient, will see what colonoscopy and endoscopy shows. Will continue to monitor. cc: Alonzo Vallejo MD
[2019-05-05] MEDS: D5W 1,000 ML IV SCH (14:00)
[2019-05-05] MEDS ORDERED: GOLYTELY PO ONE (14:00)
[2019-05-05] MEDS: NEURONTIN PO SCH (22:01)
[2019-05-06] MEDS: D5W 1,000 ML IV SCH ×2 (01:39→05:25)
[2019-05-06] MEDS: SOLU-MEDROL IV SCH (06:22)
[2019-05-06] MEDS ORDERED: DIPRIVAN 1% ONE (08:07)
[2019-05-06] MEDS ORDERED: FENTANYL ONE (08:08)
[2019-05-06 08:18] LABS: BASO# 0.01 X1000 (0.0-0.2); BASO% 0.2 % (0.0-0.8); EOS# 0.23 X1000 (0.0-0.7); EOS% 3.9 % (0.0-10.0); HEMATOCRIT 28.8 % (37.0-47.0); IMM GRAN# 0.04 X1000 (0.0-0.04); IMM GRAN% 0.7 % (0.0-0.5); LYMPH# 0.37 X1000 (1.2-3.4); LYMPH% 6.2 % (20.5-51.1); MCH 29.5 PG (27-31); MCHC 31.3 g/dL (33-37); MCV 94.4 FL (81-99); MONO# 0.41 X1000 (0.11-0.59); MONO% 6.9 % (1.7-9.3); MPV 9.9 FL (7.4-10.4); NEUT# 4.87 X1000 (1.4-6.5); NEUT% 82.1 % (42.2-75.2); PLT 161 X1000 (130-400); RBC 3.05 XMIL (4.2-5.4); RDW 14.9 % (11.5-14.5); WBC 5.93 X1000 (4.8-10.8)
[2019-05-06 08:41] LABS: CALCIUM 8.4 mg/dL (8.8-10.2); CREATININE 1.5 mg/dL (0.5-0.9); PHOSPHORUS 3.7 mg/dL (2.7-4.5); POTASSIUM 3.5 mmol/L (3.5-5.1)
[2019-05-06] MEDS ORDERED: XYLOCAINE-MPF 2% ONE (09:15)
--- NOTE | 2019-05-06 09:28 | ENDOSCOPY OPERATIVE NOTE ---
[facility] ENDOSCOPY OPERATIVE NOTE , EGD PROCEDURE REPORT EXAM DATE: 05/06/2019 PATIENT NAME: Rob Jean MR#: [id number] BIRTHDATE: 1950 ATTENDING: Royer Flores MD STATUS: inpatient EMERGENCY PLANNER: INDICATIONS: The patient is a 68 yr old female here for an EGD due to Crohn's disease, gastric wall thickening. PROCEDURE PERFORMED: EGD w/ biopsy MEDICATIONS: Per Anesthesia ESTIMATED BLOOD LOSS: None CONSENT: The patient understands the risks and benefits of the procedure and understands that these r isks include, but are not limited to: sedation, allergic reaction, infection, perforation and/or bleeding. Alternative means of evaluation and treatment include, among others: physical exam, x-rays, and/or surgical intervention. The patient elects to proceed with this endoscopic procedure. DESCRIPTION OF PROCEDURE: During pre-op preparation period all mechanical and medical equipment was c hecked for proper function. Hand hygiene and appropriate measures for infection prevention was taken. After the risks, benefits and alternatives of the procedure were thoroughly explained, Informed consent was verified, confirmed and timeout was successfully executed by the treatment team. The patient was anesthetized with topical anesthesia and the endoscope was introduced through the mouth and advanced to the second portion of the duodenum. Retroflexion wa s performed in the stomach and revealed a hiatal hernia and Retroflexion was performed in the stomach and revealed Small GOV-1, gastric varices. The gastroscope was then slowly withdrawn and removed. The patient's toleration of the pro cedure was good. ESOPHAGUS: Patchy Alexandra esophagitis found throughout the esophagus. Biopsies were obtained with co ld biopsy forceps. Three columns of Grade I-II esophageal varices were found in the distal esophagus. No stigmata of re cent bleeding. The z-line was noted at 40cm from the incisors. The z-line appeared normal. Small hiatal hernia. STOMACH: Mild portal hypertensive gastropathy was found in the entire examined stomach. There were small non bleeding and grape-like gastric varices in the cardia, GOV1. Mild gastritis (inflammation) was found in the gastric antrum. DUODENUM: Lymphectasias found in the second portion of the duodenum. Random biopsies were obtained w ith cold biopsy forceps. Suspected varix found in the second portion of the duodenum. ADVERSE EVENTS: There were no complications. IMPRESSIONS: 1. Patchy Alexandra esophagitis found throughout the esophagus. Biopsies were obtain ed with cold biopsy forceps 2. Three columns of Grade I-II esophageal varices were found in the distal esophagus. No stigmata o f recent bleeding 3. The z-line was noted at 40cm from the incisors. Small hiatal hernia 4. Portal hypertensive gastropathy was found in the entire examined stomach 5. There were small gastric varices in the cardia. GOV1 6. Gastritis (inflammation) was found in the gastric antrum 7. Lymphectasias found in the second portion of the duodenum. Random biopsies were obtained with co ld biopsy forceps. Suspected varix found in the second portion of the duodenum RECOMMENDATIONS: 1. Start oral diflucan Recommend nadolol 10mg PO, titrate for HR 55-60 2. Await biopsy results 3. Continue to colonoscopy procedure REPEAT EXAM: Royer Flores MD eSigned: Royer Flores MD 05/06/2019 9:27 AM CC: CPT CODES: 82643 Upper gastrointestinal endoscopy including esophagus, stomach, and either the du odenum and/or jejunum as appropriate; with biopsy, single or multiple ICD CODES: The ICD and CPT codes recommended by this software are interpretations from the data that the [facility] staff has captured with the software. The verification of the translation of this report to the ICD and CPT co eleno and modifiers is the sole responsibility of the health care institution and practicing physician where this report was generated. [employer] will not be held responsible for the validity of the ICD and CPT codes i ncluded on this report. [employer] assumes no liability for data contained or not contained herein. CPT is a registered tra demark of the [employer]. PATIENT NAME: Rob Jean MR#: [id number]
--- NOTE | 2019-05-06 09:34 | ENDOSCOPY OPERATIVE NOTE ---
[facility] ENDOSCOPY OPERATIVE NOTE , COLONOSCOPY PROCEDURE REPORT EXAM DATE: 05/06/2019 PATIENT NAME: Rob Jean MR #: [id number] BIRTHDATE: 1950 ENDOSCOPIST: Royer Flores MD STATUS: inpatient INVENTORY CONTROL MANAGER: INDICATIONS: The patient is a 68 yr old female here for a colonoscopy due to Crohn's disease, diarrh ea. PROCEDURE PERFORMED: Colonoscopy with biopsy MEDICATIONS: Per Anesthesia PREP TYPE: GoLytely
[2019-05-06] MEDS: SODIUM BICARBONATE PO SCH ×2 (10:19→20:02)
[2019-05-06] MEDS: CALTRATE 600 + D PO SCH (10:20)
[2019-05-06] MEDS: FOLIC ACID PO SCH (10:20)
[2019-05-06] MEDS: PATIENT'S OWN MED PO SCH ×2 (10:21→20:12)
[2019-05-06] MEDS: PROTONIX PO SCH (10:21)
[2019-05-06] MEDS ORDERED: DIFLUCAN PO ONE (11:15)
--- NOTE | 2019-05-06 16:11 | Diag Imaging Result Doc PS360 ---
EXAM: US ABDOMEN-COMPLETE 05/06/2019 HISTORY: R/o cirrhosis, please use dopplers. has varices TECHNIQUE: Abdominal ultrasound COMMENT: The pancreas is poorly demonstrated but there are portions of the body which are normal in appearance. The visualized portions of the aorta and inferior vena cava are within normal limits. There is ascites. The liver is heterogeneous and nodular in contour. The gallbladder is thickened with sludge and small stones. There is no sonographic Beckman sign however. There is no evidence of biliary dilatation the common bile duct measuring less than 4 mm. There is apparent antegrade flow in the portal vein. There is a 9 mm stone in the upper pole of the right kidney. There are two stones on the left side in the lower pole measuring less than 3 mm. The spleen is not enlarged. There are apparent varices present around the splenic hilus. There is no evidence of hydronephrosis. There is a cyst in the upper pole of the left kidney measuring 2 cm in diameter. IMPRESSION: Severe cirrhosis with varices. Bilateral nephrolithiasis. Cholelithiasis and probable chronic cholecystitis. Electronically signed by Ahmet Valadez 05/06/2019 4:09 PM
[2019-05-06] MEDS ORDERED: LOMOTIL PO PRN (16:17)
--- NOTE | 2019-05-06 16:34 | PROVIDER PROGRESS NOTE ---
Progress Note Subjective: No new complaints. Eating well. Minimal swelling. Still with diarrhea. Objective: General: elderly white female lying in bed in no acute distress. HEENT: normocephalic, a traumatic, pupils equal and reactive, mucous membranes moist. Trachea midline. Skin: warm and dry. Neck: supple, JVD appreciated. Cardiovascular: S1, S2, tachycardic, no murmur noted. Respiratory: scattered inspiratory wheezing posterior bilateral Abdomen: soft, mildly tender, nondistended. Bowel sounds active. : non inspected Extremities: no clubbing, cyanosis, or Edema. Neurologic: alert and oriented to person, place, and time. Labs: WBC 5.93, hemoglobin nine, hematocrit 28.8, platelet count 161, sodium 142, potassium 3.5, chloride 105, carbon dioxide 21, BUN 17, creatinine 1.5. Impression: Acute kidney injury overLying chronic. Likely prerenal from dehydration. Creatinine continues to improve, patient is making adequate urine. No changes. W e will sign off. Please call if we can help. Metabolic acidosis. Stable. Remains on sodium bicarbonate PO. Anemia. Stable. Blood pressure. In target. Fluid volume. Modest edema. Stable. Nutrition. Tolerating food. Ambulation. Up with assist. Medication review. No changes.
[2019-05-06] MEDS: NEURONTIN PO SCH (20:10)
--- NOTE | 2019-05-07 04:24 | PROGRESS NOTE ---
DATE: 05/06/2019 SUBJECTIVE: The patient has no major complaints. The patient has still some diarrhea but overall improved. OBJECTIVE: Blood pressure 165/64, heart rate 90, respiratory rate 14, temperature 98.7 degrees.Cardiovascular: Regular rate and rhythm. Pulmonary: Bilateral breath sounds, clear to auscultation. GI: Soft, nontender, nondistended. Bowel sounds were positive. LABORATORY DATA: White count 5, hemoglobin and hematocrit 9 and 28, platelets 161,000. Basic was normal except for creatinine of 1.5, which is improved. ASSESSMENT AND PLAN: 1. Crohn disease acute exacerbation. We will continue treatment per Gastroenterology. We will continue to follow. 2. Hypokalemia, improved. 3. Acute kidney injury. Creatinine slowly improving. She is on bicarbonate tablets. 4. Anemia is overall stable. The patient clinically improving hopefully discharge soon in the next 1-2 days. 5. Cirrhosis of the liver. We will continue to monitor closely. cc: Javan Hodge MD MTDD
[2019-05-07] MEDS: FOLIC ACID PO SCH (08:46)
[2019-05-07] MEDS: PROTONIX PO SCH (08:48)
[2019-05-07] MEDS: SODIUM BICARBONATE PO SCH (08:48)
[2019-05-07] MEDS: CALTRATE 600 + D PO SCH (08:48)
[2019-05-07] MEDS: PATIENT'S OWN MED PO SCH (08:49)
[2019-05-07] MEDS: D5W 1,000 ML IV SCH (08:49)
[2019-05-07] MEDS ORDERED: PREDNISONE PO SCH (09:00)
[2019-05-07] MEDS ORDERED: DIFLUCAN PO SCH (09:00)
[2019-05-07] MEDS ORDERED: CORGARD PO SCH (09:00)
[2019-05-07 09:09] LABS: BASO# 0.02 X1000 (0.0-0.2); BASO% 0.4 % (0.0-0.8); EOS# 0.13 X1000 (0.0-0.7); EOS% 2.5 % (0.0-10.0); HEMATOCRIT 27.9 % (37.0-47.0); HEMOGLOBIN 8.6 g/dL (12.0-16.0); IMM GRAN# 0.02 X1000 (0.0-0.04); IMM GRAN% 0.4 % (0.0-0.5); LYMPH# 0.59 X1000 (1.2-3.4); LYMPH% 11.2 % (20.5-51.1); MCH 30.4 PG (27-31); MCHC 30.8 g/dL (33-37); MCV 98.6 FL (81-99); MONO# 0.55 X1000 (0.11-0.59); MONO% 10.5 % (1.7-9.3); MPV 10.7 FL (7.4-10.4); NEUT# 3.95 X1000 (1.4-6.5); PLT 139 X1000 (130-400); RBC 2.83 XMIL (4.2-5.4); RDW 14.9 % (11.5-14.5); WBC 5.26 X1000 (4.8-10.8)
[2019-05-07 09:59] LABS: CALCIUM 8.1 mg/dL (8.8-10.2); CREATININE 1.6 mg/dL (0.5-0.9); POTASSIUM 3.9 mmol/L (3.5-5.1)
[2019-05-07 12:33] VITALS: BP 158/63
--- NOTE | 2019-05-07 13:51 | GASTROENTEROLOGY PROGRESS NOTE ---
DATE: 05/07/2019 SUBJECTIVE: Ms. Jean is a 68-year-old, female. She was sitting in bed. Nursing staff at the bedside, giving her medications. The patient has denied any nausea, vomiting, or abdominal pain but she still has liquid diarrhea. OBJECTIVE: Vital Signs: Temperature 98.3 degrees, pulse 65, respirations 16, blood 158/63, oxygen saturation 98% on room air. The patient's weight is 186 pounds. BMI is 32.0 kg/m2. General: She is alert, oriented x3, and in no acute distress. HEENT: Pale conjunctivae. No icterus. PERRL. Neck: Supple. Lungs: Clear to auscultation in the anterior veloz. Cardiovascular: Regular rate and rhythm. Abdomen: Soft, nontender, nondistended. Active bowel sounds heard in all 4 quadrants. Extremities: No clubbing. No cyanosis. There is 2+ pitting edema in the lower extremities. Neurologic: She is alert and oriented x3. Lab: WBCs of 5.26, RBCs 2.83, hemoglobin 8.6, hematocrit is 27.9, platelet count is 139,000. Sodium 140, potassium 3.9, chloride 107, carbon dioxide 16, anion gap is 17, BUN 15, creatinine 1.6, glucose 97, calcium 8.1. The patient's C. difficile toxins and antigens were negative. Her stools for WBCs and ova and parasites was also negative. Ultrasound of the abdomen showed severe cirrhosis with varices, bilateral nephrolithiasis, cholelithiasis, and probable chronic cholecystitis. IMPRESSION AND PLAN: - Crohn's disease - Jed esophagitis - Diarrhea - LAURA - Anemia - Cirrhosis - Esophageal varices - Gastric varices - Duodenal varix - Thrombocytopenia - Protein calorie malnutrition PLAN: Ms. Jean is a 68-year-old, female with a history of Crohn's disease. GI has been following for Crohn's disease. The patient has denied any nausea, vomiting, or abdominal pain but she is still having diarrhea. We did an EGD and a colonoscopy yesterday. Colonoscopy findings were a normal neoterminal and colonic mucosa. Biopsy was performed. She had a 5 mm, sessile polyp in the transverse colon. Polypectomy was done. Mild nonbleeding diverticulosis was found in the sigmoid colon and small internal hemorrhoids. An EGD showed that she had some patchy jed esophagitis throughout the esophagus. Biopsies were done. Grade 1-2 esophageal varices were found in the distal esophagus. No stigmata of recent bleeding. Portal hypertensive gastropathy was found in the entire stomach. Small gastric varices in the cardia GOV1, gastric inflammation was found in the gastric antrum. lymphectasias was found in the second portion of the duodenum. Random biopsies were taken. Awaiting the results of the biopsies. We have ordered a hepatitis panel and an AMA test. The patient is currently receiving Diflucan 200 mg p.o. for her jed esophagitis. She is on antiemetic, Zofran, for her nausea and vomiting and GI prophylaxis, Protonix 40 mg p.o. daily. The patient is also taking sulfasalazine for her Crohns disease and we have restarted her on prednisone 10 mg p.o. daily. We will continue to monitor the patient. Awaiting the results of the biopsies, hepatitis panel and the AMA test. This plan was discussed with Dr. Flores. Please call us for any further questions or concerns. Dictated by BLANCA Mclean for Royer Flores MD Physician Attestation I have seen and examined the patient. I have discussed and reviewed the note by Jolene RIOS and agree with findings and plan as documented. In brief, Ms. Rob Jean is a 68 year old woman with Crohn's disease s/p ileocecal resection, RA on prednisone who was admitted with LAURA in setting of volume depletion from diarrhea. EGD showed signs of cirrhosis with esophageal/gastric varices. Se has anemia and mild thrombocytopenia. Notable protein calorie malnutrition. Noted jed esophagitis. Now no diflucan. We have restarted home prednisone and started on nadolol. Will start antidiarrheal medications and await biopsy results. There was no findings of active Crohn's on endoscopy. Will follow with you. Please call with questions. [facility]
[2019-05-08 09:26] LABS: HEPATITIS PROFILE ACUTE SEE COMMENTS
--- NOTE | 2019-05-08 10:40 | DISCHARGE SUMMARY ---
ADMISSION DATE: 04/28/2019 DISCHARGE DATE: 05/07/2019 DISCHARGE DIAGNOSES: 1. Cirrhosis, unknown primary type, although suspicion of possible autoimmune. 2. Crohn's exacerbation. 3. Anemia of chronic inflammation. 4. Acute kidney injury. PROCEDURES: EGD and colonoscopy per Dr. Flores. CONSULTATIONS: Dr. Reeder and Mark, GI and Dr. Kaur, nephrology. BRIEF SUMMARY: Admit date was 04/28, discharge date 05/07. This is a 68-year-old female with known Crohn's for 20 years. She has had bowel resections associated. 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 She came in with a creatinine of 5.1 which it has been around 2.2. She was placed on fluid, potassium was low, calcium was low. She has a history of rheumatoid arthritis as well for which she is on Azulfidine, prednisone 10 daily. The patient had slow improvement. Dr. Kaur evaluated the patient, felt like she had some ATN possibly from antibiotics. Her kidney function improved with hydration. She was maintained on bicarbonate. Dr. Reeder evaluated her and felt that she needed a CT enterography, but it was difficult to get that CT because of the patient not tolerating certain things. She had mild thickening to the distal small-bowel, cholelithiasis, nephrolithiasis, prominent varices in her left upper abdomen. Abdominal ultrasound confirmed a diagnosis of cirrhosis, which we really did not have evidence for but severe cirrhosis with varices. She had some ascites. She had gallbladder wall thickening and some sludge. There was antegrade flow in the portal vein. She had some kidney stones but in the kidneys themselves, splenic hilar varices. Her diarrhea eventually improved. I guess there were plans to discharge her on the , but that did not end up happening and she was watched and they did an endoscopy on the , which showed a normal neoterminal ileum. She had a sessile polyp in her transverse colon. There was really no evidence of active Crohn's though at least on the colonoscopy. Her endoscopy showed patchy candidal esophagitis throughout the esophagus. She had grade 1-2 esophageal varices, 3 columns noted in the distal esophagus, portal hypertensive gastropathy, gastric varices, gastritis, lymphangiectasia in her duodenum and likely a duodenal varix in the 2nd portion. She was placed on Diflucan and nadolol. On the she was doing okay. Vital signs were stable. Exam was normal. Hemoglobin and hematocrit was 8 and 27, creatinine around 1.6, which is close to her baseline, so she was felt stable for discharge. FOLLOW-UP INSTRUCTIONS: She will need follow up with Dr. Flores for her cirrhosis. DISCHARGE MEDICATIONS: Lactinex, Azulfidine 500 b.i.d., calcium carbonate daily, Cozaar 50 daily, gabapentin 100 daily, prednisone 10 daily, Protonix 40 daily, nadolol 10 daily which is new, Diflucan 100 daily for another 7 days. Folic acid 1 daily, Lomotil as needed, sodium bicarbonate 1300 b.i.d. DISCHARGE CONDITION: Stable. TIME SPENT AT DISCHARGE: 32 minutes. cc: MD Pablo Gore MD Babu Kantamneni, MD Eric Crampsey, CRNP
== END 2019-05-07 16:38 | disposition home health service (06) | DRG 432 ==
LOC: ED 05:47 → SUATTDRO 09:58 → 3N 09:58
PROVIDERS: ATTEND Internal Medicine

== ENCOUNTER 2019-05-19 21:13 | Inpatient (IN) ==
[2019-05-19 21:55] LABS: URINE SOURCE CLEAN CATCH
[2019-05-19 22:00] LABS: BASO# 0.02 X1000 (0.0-0.2); BASO% 0.4 % (0.0-0.8); BILIRUBIN URINE NEGATIVE (NEGATIVE); BLOOD URINE TRACE (NEGATIVE); COLOR YELLOW; EOS# 0.06 X1000 (0.0-0.7); EOS% 1.2 % (0.0-10.0); GLUCOSE URINE NEGATIVE (NEGATIVE); HEMATOCRIT 32.6 % (37.0-47.0); HEMOGLOBIN 10.1 g/dL (12.0-16.0); KETONE URINE NEGATIVE (NEGATIVE); LEUKOCYTES URINE TRACE (NEGATIVE); LYMPH# 0.52 X1000 (1.2-3.4); LYMPH% 10.2 % (20.5-51.1); MCH 28.7 PG (27-31); MCV 92.6 FL (81-99); MONO# 0.37 X1000 (0.11-0.59); MONO% 7.3 % (1.7-9.3); MPV 11.1 FL (7.4-10.4); NEUT# 4.11 X1000 (1.4-6.5); NEUT% 80.9 % (42.2-75.2); NITRITE URINE NEGATIVE (NEGATIVE); PLT 184 X1000 (130-400); PROTEIN URINE 30 mg/dL (NEGATIVE); RBC 3.52 XMIL (4.2-5.4); RDW 14.8 % (11.5-14.5); SP GRAVITY URINE 1.011; TURBIDITY URINE CLEAR (CLEAR); UROBILINOGEN URINE NORMAL (NORMAL); WBC 5.08 X1000 (4.8-10.8)
[2019-05-19 22:01] LABS: UR EPITHELIAL CELLS <10 /HPF (<10); URINE BACTERIA NEGATIVE /HPF; URINE RBC <10 /HPF (<10); URINE WBC <10 /HPF (<10)
[2019-05-19 22:45] LABS: ALB/GLOB RATIO 1.2; ALBUMIN 3.5 g/dL (3.5-5.0); CREATININE 2.4 mg/dL (0.5-0.9); POTASSIUM 3.7 mmol/L (3.5-5.1); TOTAL BILIRUBIN 0.34 mg/dL (0.20-1.00); TOTAL PROTEIN 6.5 g/dL (6.3-8.3)
[2019-05-19 22:46] LABS: MAGNESIUM 0.7 mg/dL (1.5-2.7)
[2019-05-19] MEDS ORDERED: MAGNESIUM SULFATE 2 GM/S.W.I. 2 GM/50 ML IVPB IV ONE (22:47)
[2019-05-19] MEDS ORDERED: CALCIUM GLUCONATE 2 GM in NS 100 ML IV ONE (22:48)
[2019-05-19] MEDS ORDERED: NS 1,000 ML IV ONE (22:49)
--- NOTE | 2019-05-19 22:55 | PROVIDER DOCUMENTATION ---
This chart was entered by Kristi Ashford Scribe, acting as scribe for Sara Soto MD. HPI-General Adult - General Chief Complaint: Abnormal Lab[s] Stated Complaint: ABNORMAL LABS Time Seen by Provider: 05/19/19 22:38 Source: patient Allergies/Adverse Reactions: Patient Allergies Allergy/AdvReac Type Severity Reaction Status Date / Time abatacept [From Orencia] Allergy SWELLING Verified 04/28/19 06:43 infliximab [From Remicade] Allergy Unknown Verified 04/28/19 06:43 clindamycin AdvReac NAUSEA/VOMI Verified 04/28/19 06:43 TING duloxetine [From Cymbalta] AdvReac Unknown Verified 04/28/19 06:43 guaifenesin AdvReac RASH Verified 04/28/19 06:43 levofloxacin [From Levaquin] AdvReac Unknown Verified 04/28/19 06:43 meloxicam [From Mobic] AdvReac VOMITING Verified 04/28/19 06:43 nitrofurantoin AdvReac NAUSEA/VOMI Verified 04/28/19 06:43 TING temazepam AdvReac NAUSEA/VOMI Verified 04/28/19 06:43 TING tramadol AdvReac NAUSEA Verified 04/28/19 06:43 zaleplon AdvReac NAUSEA/VOMI Verified 04/28/19 06:43 TING Home Medications: Home Medication List Medication Instructions Recorded Confirmed Last Taken Type Calcium Carbonate/Vit D3 [Caltrate 1 ea PO DAILY 04/28/19 04/28/19 Unknown History 600 + D] Gabapentin 100 mg PO DAILY 04/28/19 04/28/19 1 Day Ago History ~04/27/19 Lactobacillus Acidophilus 1 ea PO DAILY 04/28/19 04/28/19 Unknown History [Acidophilus] Losartan [Cozaar] 50 mg PO DAILY 04/28/19 04/28/19 1 Day Ago History ~04/27/19 Pantoprazole [Protonix] 40 mg PO DAILY 04/28/19 04/28/19 1 Day Ago History ~04/27/19 Prednisone 10 mg PO DAILY 04/28/19 04/28/19 1 Day Ago History ~04/27/19 Sulfasalazine [Azulfidine] 500 mg PO BID 04/28/19 04/28/19 Unknown History Vit C/E/Zn/Coppr/Lutein/Zeaxan 1 ea PO DAILY 04/28/19 04/28/19 Unknown History [Preservision Areds 2 Softgel] Folic Acid 1 mg PO DAILY tab 05/02/19 Unknown Rx Sodium Bicarbonate 1,300 mg PO BID #60 tab 05/02/19 Unknown Rx Diphenoxylate/Atropine [Lomotil] 1 ea PO 4XDAY PRN PRN #40 tab 05/07/19 Unknown Rx Fluconazole [Diflucan] 100 mg PO DAILY #7 tab 05/07/19 Unknown Rx Nadolol [Corgard] 10 mg PO DAILY #30 tab 05/07/19 Unknown Rx - History of Present Illness -Gen Adult Nature of Presenting Problems: pt is a 68 yr old female presenting with complaint of altered labs, pt reports she had regular check up with PCP today, blood work done at the appointment, pt reports she was called this evening and told to come to ER for low calcium and magnesium values. pt denies any complaints, no chest pain or shortness of breath, no weakness or fatigue. pt reports she only came because PCP told her to. Location of Pain/Injury: reports: none Pain Radiation: reports: no radiation Quality of Pain: reports: none Timing: reports: still present Context/Activities at Onset: reports: light activity Modifying Factors: improves with: nothing Associated Symptoms: denies: arm pain, back/neck pain, cough, dizziness, EENT symptoms, fatigue, fever/chills, genitourinary problems, malaise, shortness of breath, weakness Recently seen or treated by another doctor?: Yes (seen by PCP today) Review of Systems - Adult - REVIEW OF SYSTEMS - ADULT Constitutional: denies: fever, fatique Eyes: denies: blurred vision, double vision Ears, Nose, Mouth & Throat: reports: no symptoms reported Cardiovascular: denies: chest pain, palpitations, syncope Respiratory: denies: cough, dyspnea on exertion, shortness of breath Gastrointestinal: denies: abdominal pain, diarrhea, nausea, vomiting Genitourinary: denies: dysuria, frequency, urinary retention Musculoskeletal: denies: back pain, frequent leg cramps, joint pain, muscle weakness, neck pain Integumentary: reports: no symptoms reported Neurological: denies: dizziness/vertigo, headache/migraines, syncope Psychiatric: reports: no symptoms reported Endocrine: reports: no symptoms reported Hematologic/Lymphatic: reports: no symptoms reported Allergic/Immunologic: reports: no symptoms reported All Other Systems: Reviewed and Negative Past History - Adult - PAST MEDICAL HISTORY-ADULT Review of Records: reports: Old Records Reviewed, Nursing Assessment Review, Medications Reviewed, Social history reviewed & non-contributory. Major Childhood Illnesses: reports: denies history Cardiovascular: reports: denies history Respiratory: reports: denies history Gastrointestinal: reports: denies history Obstetrical/Gynecological: reports: denies history Genitourinary: reports: denies history Musculoskeletal: reports: denies history Neurological: reports: denies history Endocrine/Immune: reports: denies history Other Conditions: reports: denies history - IMMUNIZATION STATUS Childhood Immunizations: See Nurse Assessment Flu Vaccine: See Nurse Assessment - FAMILY HISTORY Family History: reviewed, not pertinent - SOCIAL HISTORY Smoking: cigarettes Provider spent 3-5 mins advising pt. on dangers of tobacco.: Discussed manners to quit use, and f/u contacts for add'l counseling. Substance Use: denies Living Situation: family Physical Exam-General - PHYSICAL EXAM-ADULT Initial Vital Signs Reviewed: Yes - CONSTITUTIONAL General Appearance: appears well, alert, no apparent distress, thin - EYES Eyes: PERRL/EOMI - HEAD, EARS, NOSE, MOUTH & THROAT HENMT: normocephalic/atraumatic - NECK Neck: non-tender, full range of motion, supple, normal inspection - RESPIRATORY Respiratory: chest non-tender, lungs clear, normal breath sounds, no respiratory distress, no accessory muscle use - CARDIOVASCULAR Cardiovascular: normal peripheral pulses, regular rate, rhythm, no edema, no gallop, no JVD, no murmur - GASTROINTESTINAL (ABDOMEN) Abdominal Exam: normal bowel sounds, non tender, soft - LYMPHATIC Lymphatic: no adenopathy - MUSCULOSKELETAL Back Exam: normal inspection, no CVA tenderness, no vertebral tenderness Extremity: normal range of motion, non-tender, normal gait, normal inspection - SKIN Integumentary: normal color, normal turgor, warm/dry - NEUROLOGIC Neurologic: grossly normal, no motor/sensory deficits - PSYCHIATRIC Psych/Mental Status: normal mood/affect, normal thought content, normal thought process, oriented x 3 Progress - PLAN OF CARE/RESULTS Progress/Plan/Lab Results: Vital Signs - 8 hr 05/19/19 21:18 Temperature 98.3 F Pulse Rate 80 Respiratory Rate 16 Blood Pressure 164/78 O2 Sat by Pulse Oximetry 99 Laboratory Results - last 24 hr 05/19/19 05/19/19 05/19/19 21:36 21:36 21:36 WBC 5.08 RBC 3.52 L Hgb 10.1 L Hct 32.6 L MCV 92.6 MCH 28.7 MCHC 31.0 L RDW Std Deviation 14.8 H Plt Count 184 MPV 11.1 H Immature Gran % (Auto) 0.0 Neut % (Auto) 80.9 H Lymph % (Auto) 10.2 L Hickman % (Auto) 7.3 Eos % (Auto) 1.2 Baso % (Auto) 0.4 Immature Gran # (Auto) 0.00 Neut # (Auto) 4.11 Lymph # (Auto) 0.52 L Hickman # (Auto) 0.37 Eos # (Auto) 0.06 Baso # (Auto) 0.02 Sodium 140 Potassium 3.7 Chloride 104 Carbon Dioxide 16 L Anion Gap 20 BUN 31 H Creatinine 2.4 H Estimated GFR/1.73 m2 20 BUN/Creatinine Ratio 13 Glucose 118 H Calculated Osmolality 287 Calcium 6.4 L* Magnesium 0.7 L* Total Bilirubin 0.34 AST 23 ALT 10 Alkaline Phosphatase 160 H Total Protein 6.5 Albumin 3.5 Globulin 3.0 Albumin/Globulin Ratio 1.2 Urine Source CLEAN CATCH Urine Color YELLOW Urine Turbidity CLEAR Urine pH 6.0 Ur Specific [place] 1.011 Urine Protein 30 A Ur Glucose (Stick) NEGATIVE Ur Ketones (Stick) NEGATIVE Urine Blood TRACE A Urine Nitrite NEGATIVE Urine Bilirubin NEGATIVE Urobilinogen Dipstick NORMAL Urine Leukocytes TRACE A Urine WBC (Auto) <10 Urine RBC (Auto) <10 U Epithel Cells (Auto) <10 Urine Bacteria (Auto) NEGATIVE Orders Category Date Time Status CBC WITH DIFF [HEME] Stat Lab 05/19/19 21:36 Completed COMPREHENSIVE METABOLIC PANEL [CHEM] Stat Lab 05/19/19 21:36 Completed MAGNESIUM [CHEM] Stat Lab 05/19/19 21:36 Completed UA NIMS W/REFLEX CULT [URINALYSIS] Stat Lab 05/19/19 21:36 Completed URINE CULTURE [RM] Routine Lab 05/19/19 21:35 Received Calcium Gluconate 2 gm Med 05/19/19 22:48 Active 0.9% Sodium Chloride Inj [Ns] 100 ml IV NOW Magnesium Sulfate 2 gm/S.w.i. Med 05/19/19 22:47 Active 2 gm in 50 ml IV NOW EKG [EKG] Stat Ther 05/19/19 22:48 Ordered Result Diagrams: 05/19/19 21:36 05/19/19 21:36 - CONSULTS/PCP/HOSPITALIST Notification #1 *Consult/PCP/Hospitalist*: Dr Villafana Time Discussed: 22:50 Reason/Comments: discussed plan of care for pt admit Consult Disposition: Admit Departure - Departure Date of Disposition Decision: 05/19/19 Time of Disposition Decision: 22:55 DIAGNOSIS: Hypomagnesemia, Hypocalcemia, Acute kidney injury Disposition: ADMITTED INPATIENT 09 Certified Medical Emergency: Emergent Condition: Stable - Critical Care Note This patient required my direct & personal management of CC.: No Attestation - Physician/ ANGUS Attestation Patient care was provided by Advanced Practice Provider:: No The physician spent face to face time with patient:: Yes Advanced Practice Provider documentation review:: Supervising physician onsite and consulted in the evaluation and care of this patient. The physician did have a face to face encounter with the patient. This chart was documented by the indicated scribe, (Kristi Ashford Scribe) and accurately reflects the services I performed and decisions made by me, Sara Soto MD, as attested by the provider's signature.
[2019-05-19 23:31] LABS: CALCIUM 6.4 mg/dL (8.8-10.2)
--- NOTE | 2019-05-20 01:53 | EKG Report ---
Test Performed on : 05/20/2019 00:39:16 AM Test Reason : CP Blood Pressure : / mmHG Vent. Rate : 076 BPM Atrial Rate : 076 BPM P-R Int : 200 ms QRS Dur : 074 ms QT Int : 414 ms P-R-T Axes : 000 -24 144 degrees QTc Int : 465 ms Normal sinus rhythm. Septal infarct , age undetermined ST & T wave abnormality, consider lateral ischemia Abnormal ECG When compared with ECG of 22-APR-2015 10:50, fusion complexes are no longer present Septal infarct is now present Nonspecific T wave abnormality now evident in Inferior leads Unconfirmed Result
[2019-05-20] MEDS ORDERED: LOMOTIL PO PRN (02:01)
[2019-05-20] MEDS ORDERED: ZOFRAN IV PRN (02:01)
--- NOTE | 2019-05-20 05:02 | EKG Report ---
Test Performed on : 05/20/2019 04:57:49 AM Test Reason : rhythm change Blood Pressure : / mmHG Vent. Rate : 064 BPM Atrial Rate : 064 BPM P-R Int : 140 ms QRS Dur : 084 ms QT Int : 472 ms P-R-T Axes : 050 -01 064 degrees QTc Int : 486 ms Normal sinus rhythm. Normal ECG When compared with ECG of 20-MAY-2019 00:39, (Unconfirmed) T wave inversion no longer evident in Lateral leads Unconfirmed Result
--- NOTE | 2019-05-20 06:15 | HISTORY AND PHYSICAL ---
PRIMARY CARE PHYSICIAN: None. CHIEF COMPLAINT: Abnormal labs. HISTORY OF PRESENTING ILLNESS: A 68-year-old female with a history of Crohn's, rheumatoid arthritis, and hypertension who had presented to the emergency department due to the patient going to a new physician recently, and had some labs done. She was called back stating that the labs were abnormal, and that she had low calcium and magnesium. She was told to come to the emergency department. In the ED, she was evaluated. She had repeat labs drawn which did confirm that her calcium and magnesium were low. The patient was also having some symptoms of tremors. She was treated in the ED with calcium gluconate and IV magnesium. Due to her presenting symptoms, she will need admission for further management. At the time of my examination, patient denied any headache, fever, chills, chest pain, shortness of breath, or any weight changes, but states that she was having some tremor like symptoms. PAST MEDICAL HISTORY: Includes Crohn's, rheumatoid, arthritis, hypertension, and cirrhosis. PAST SURGICAL HISTORY: Hip replacement and right lobectomy. ALLERGIES: infliximab, clindamycin, duloxetine, and guaifenesin. SOCIAL HISTORY: No history of smoking, alcohol or illicit drug use. CURRENT MEDICATIONS: 1. Calcium carbonate 1 tablet daily. 2. Lomotil 1 tablet 4 times a day. 3. Diflucan 100 mg p.o. daily. 4. Folic Acid 1 mg p.o. daily. 5. Gabapentin 100 mg p.o. daily. 6. Losartan 50 mg p.o. daily. 7. Haldol 10 mg p.o. daily. 8. Pantoprazole 40 mg p.o. daily. 9. Prednisone 10 mg p.o. daily. 10. Sodium bicarb 1300 mg p.o. b.i.d. 11. Sulfasalazine 500 mg p.o. b.i.d. FAMILY HISTORY: Positive for coronary artery disease in father. REVIEW OF SYSTEMS: Fourteen point review of systems as listed in HPI. Other systems negative. PHYSICAL EXAMINATION: GENERAL: Cooperative, friendly elderly female. She is resting more comfortably now. VITAL SIGNS: Temperature 98.3 degrees, pulse 80, respirations 16, and blood pressure 164/78. HEENT: Atraumatic, normocephalic. Extraocular movements intact. PERRLA. NECK: No masses. CHEST: Clear to auscultation. CARDIOVASCULAR: Regular rate and rhythm. ABDOMEN: Soft. Positive bowel sounds. EXTREMITIES: No edema. NEUROLOGIC: He is awake, alert, and oriented x3. : No bladder distention. SKIN: Warm. LABORATORIES AND STUDIES: WBC 5.08, hemoglobin 10.1, hematocrit 32.6, and platelets 184,000. Sodium 140, potassium 3.7, chloride 104, CO2 16, BUN 31, creatinine is 2.4, glucose 118, magnesium is 0.7, and calcium is 6.4. ASSESSMENT: This is a 68-year-old female with a history of Crohn's, rheumatoid arthritis, and hypertension who had presented to emergency department due to patient having abnormal labs. She was seen in the ED. She had repeat laboratories drawn which did confirmed that she was hypocalcemic and hypomagnesemic. Due to these presenting symptoms, she will need admission for further management. 1. Abnormal labs. 2. Hypocalcemia. 3. Hypomagnesemia. 4. Crohn's. 5. Acute kidney injury. PLAN: 1. We will admit patient to medical floor with telemetry. 2. We will get repeat magnesium and calcium level 3. We will replace calcium and magnesium as needed. 4. Consult Gastroenterology regarding her Crohn's. 5. We will continue with gentle hydration. Monitor renal function. 6. We will put patient on DVT prophylaxis with SCD's. 7. We will continue to follow and reassess. Make further recommendation based on patient's clinical course. cc: Tay Villafana MD MTDD
[2019-05-20] MEDS ORDERED: NEURONTIN PO SCH (09:00)
[2019-05-20] MEDS ORDERED: OCUVITE LUTEIN & ZEAXANTHIN PO SCH (09:00)
[2019-05-20] MEDS ORDERED: CALTRATE 600 + D PO SCH (09:00)
[2019-05-20] MEDS ORDERED: COZAAR PO SCH (09:00)
[2019-05-20] MEDS ORDERED: PREDNISONE PO SCH ×2 (09:00→10:17)
[2019-05-20] MEDS ORDERED: FOLIC ACID PO SCH (09:00)
[2019-05-20] MEDS ORDERED: AZULFIDINE PO SCH (09:00)
[2019-05-20] MEDS ORDERED: CORGARD PO SCH (09:00)
[2019-05-20] MEDS ORDERED: DIFLUCAN PO SCH (09:00)
[2019-05-20] MEDS ORDERED: CULTURELLE PO SCH (09:00)
[2019-05-20] MEDS ORDERED: SODIUM BICARBONATE PO SCH (09:00)
[2019-05-20] MEDS ORDERED: PROTONIX PO SCH (09:00)
[2019-05-20 09:47] LABS: BASO# 0.05 X1000 (0.0-0.2); BASO% 0.9 % (0.0-0.8); EOS% 3.7 % (0.0-10.0); HEMATOCRIT 32.5 % (37.0-47.0); HEMOGLOBIN 10.3 g/dL (12.0-16.0); IMM GRAN# 0.02 X1000 (0.0-0.04); IMM GRAN% 0.4 % (0.0-0.5); LYMPH# 0.85 X1000 (1.2-3.4); LYMPH% 15.8 % (20.5-51.1); MCHC 31.7 g/dL (33-37); MCV 91.5 FL (81-99); MONO# 0.64 X1000 (0.11-0.59); MONO% 11.9 % (1.7-9.3); NEUT# 3.62 X1000 (1.4-6.5); NEUT% 67.3 % (42.2-75.2); PLT 177 X1000 (130-400); RBC 3.55 XMIL (4.2-5.4); RDW 14.5 % (11.5-14.5); WBC 5.38 X1000 (4.8-10.8)
[2019-05-20 10:29] LABS: CALCIUM 7.1 mg/dL (8.8-10.2); CREATININE 2.1 mg/dL (0.5-0.9); MAGNESIUM 1.3 mg/dL (1.5-2.7); POTASSIUM 3.3 mmol/L (3.5-5.1)
[2019-05-20] MEDS ORDERED: CALTRATE 600 PO SCH (11:00)
[2019-05-20] MEDS ORDERED: VITAMIN D PO SCH (11:00)
--- NOTE | 2019-05-20 11:06 | DISCHARGE SUMMARY ---
ADMISSION DATE: 05/20/2019 DISCHARGE DATE: HISTORY OF PRESENT ILLNESS: Ms. Jean presented on 05/20/2019. She is a patient of Dr. Tim Lewis. This is a 68-year-old with a history of Crohn's disease, rheumatoid arthritis, hypertension. Presented to the emergency department. She had gone to her physician, BLANCA Cassidy. He had done some labs and followup from her hospitalization several weeks ago and found she had a low calcium and magnesium. Told her to go to the emergency room. In the emergency room, she got some calcium gluconate and some magnesium IV. She was having some cramping and a little bit of tremors. These symptoms improved and she really wanted to go home. LABORATORY DATA: Sodium at presentation was 140, potassium 3.7, chloride 104, BUN 31, creatinine 2.4, calcium was 6.4 in the face of an albumin of 3.5. Magnesium was 0.7. HOSPITAL COURSE: She was given calcium gluconate 2 g IV and 2 g of magnesium sulfate. Her followup lab, magnesium 1.3 and calcium is 7.1. Tremor was gone. Really wanted to go home. She will continue her calcium carbonate but put her on magnesium sulfate 400 mg twice a day. We will give her Klor-Con, potassium supplement 20 mEq daily, and we will let her go home. She will follow up with Tim Lewis in a couple weeks. cc: Patrick Gastelum MD
[2019-05-20 11:12] VITALS: BP 176/77
--- NOTE | 2019-05-20 11:29 | PROGRESS NOTE ---
DATE: 05/20/2019 REASON FOR ADMISSION: Patient admitted early this morning. She is a patient of BLANCA Cassidy. Apparently he checked some lab on her yesterday and had abnormal lab and was concerned. HISTORY: This is a 68-year-old with history of Crohn disease, rheumatoid arthritis, hypertension, and came to the emergency room and she was called back after labs were abnormal. She had a low calcium and magnesium. The patient was also having some symptoms, some tremors so given calcium gluconate and IV magnesium and observed through the night. PAST MEDICAL HISTORY: 1. Crohn disease. 2. Rheumatoid arthritis. 3. Hypertension. 4. Cirrhosis. PAST SURGICAL HISTORY: History of hip replacement, right lobectomy. ALLERGIES: Infliximab, clindamycin, duloxetine, guaifenesin. LABORATORY DATA: The patient's lab this morning, magnesium was up to 1.3, her calcium was 7.1, albumin of 3.5, potassium was at 3.3. ASSESSMENT/PLAN: She would like to go home and I think we can send her home. She will get calcium carbonate. She gets that once a day. She takes Lomotil as needed for loose stool she has had for a long time. Diflucan 100 mg p.o. daily, folic acid 1 mg a day. Gabapentin 100 mg daily, acidophilus 1 a day, Cozaar 50 mg a day, Corgard 10 mg daily, Protonix 40 mg a day, prednisone 10 mg a day. Sodium bicarbonate 1300 mg b.i.d., Azulfidine 500 mg b.i.d. and she takes vitamin C with combination called PreserVision 2 soft gels a day. I am going to put her on magnesium sulfate 400 mg twice a day and give her some potassium that she will take 20 mEq daily and I will let her go home. cc: Patrick Gastelum MD
== END 2019-05-20 11:35 | disposition home or self-care (01) ==
LOC: ED 21:13 → EDIPHOLD 05-20 01:37 → SUATTDRO 05-20 01:37 → 4N 05-20 11:11
PROVIDERS: ATTEND Emergency Medicine